=== PATIENT | male | born 1955 | race Caucasian/White ===

== ENCOUNTER 2017-03-18 10:28 | Emergency (ER) | payer MEDICARE ==
[~2017-03-18] VITALS: Wt 54.0 kg
[~2017-03-18 10:28] MED LIST: ALBUTEROL0.09 MG/A2 IH; ASMANEX220 MCG INH; BIAXIN500 MG PO; DUONEB 3 MG/3 ML3 M1 INH; Duoneb 3ML 3 MG/3 ML INH; HYCODAN/HYDROMET5 ML PO; IBU800 MG PO; KEFLEX500 MG PO; MEDROL DOSEPAK4 MG PO; MIRTAZAPINE15 M2 PO; MOTRIN400 MG PO; NEURONTIN800 MG PO; PAXIL20 MG PO; PAXIL40 M1 PO; PREDNICOT20 MG PO; PROAIR HFA8.5 GM INH; REMERON15 M1 PO; REMERON15 M2 PO; SPIRIVA18 MCG IH; SPIRIVA18 MCG INH; VICO10300 PO; VICODIN 5/500 505 MG PO; ZITHROMAX Z PA250 MG PO
[2017-03-18] MEDS ORDERED: TOBREX OPHTH S2.5 ML OPH (11:04)
== END 2017-03-18 11:08 | disposition home or self-care (01) ==
LOC: ED 10:28
DX: S05.02XA Injury of conjunctiva and corneal abrasion without foreign body, left eye, initial encounter (principal); F17.200 Nicotine dependence, unspecified, uncomplicated; Z79.899 Other long term (current) drug therapy; X58.XXXA Exposure to other specified factors, initial encounter; Y93.89 Activity, other specified; Y92.69 Other specified industrial and construction area as the place of occurrence of the external cause; Y99.0 Civilian activity done for income or pay

== ENCOUNTER 2017-03-27 11:59 | Inpatient (IN) | payer MEDICARE ==
[~2017-03-27] VITALS: Ht 177.8 cm; Wt 56.0 kg
--- NOTE | ~2017-03-27 | CON ---
[place], [place] REPORT OF CONSULTATION NAME: PAULINO CHA [facility] #: [id number] UNIT #: [id number] ROOM: 521 DOCTOR: REX WYLIE MD,CATY BIRTHDATE: [birth year] DOS: 03/28/2017 PULMONARY CONSULTATION REASON FOR CONSULTATION: Assess the patient for acute pneumothorax after recent fall. HISTORY OF PRESENT ILLNESS: A 61-year-old male who has been admitted to the hospital under the care of the hospitalist service on 03/27/2017. The patient presented to the Emergency Room after the patient fell down at home hitting the left side of the chest. The injury occurred on the of this month. The patient has felt the pain in left side of his chest, but did not notice any other unusual symptoms. Later on the patient was noted with gradual worsening of the pain, which occurs with movement and deep inspiration. He was also started noticing symptoms of shortness of breath. The patient presented to the Emergency Room, where chest x-ray and CT scan of the chest was completed. Both of them shows evidence of left-sided pneumothorax. The patient has been admitted to the hospital. Pneumothorax has been noted small, 10% or less on the CT scan of the chest and the chest x-ray. This morning the chest pain seemed to be decreased. Denies symptoms of hemoptysis. Denies symptoms of wheezing. REVIEW OF SYSTEMS: CONSTITUTIONAL SYMPTOMS: Fatigue and tiredness noted without symptoms of fever or chills. EYES: Denies any burning, redness, or tenderness. EARS, NOSE, THROAT: Denies sore throat, hoarseness, otalgia, postnasal drainage. CARDIOVASCULAR: Denies anginal pain, edema or pain of the lower extremities. GASTROINTESTINAL: Denies dysphagia, nausea, vomiting, diarrhea, abdominal pain, hematemesis, melena, or hematochezia. SKIN: Denies any lesions or rashes. GENITOURINARY: Denies dysuria, suprapubic pain, hematuria. MUSCULOSKELETAL: Denies acute joint pain. CENTRAL NERVOUS SYSTEM: No dizziness, headache, diplopia, syncopal episodes. Remaining systems were reviewed and they were noted all negative. PAST MEDICAL HISTORY: Reported as: 1. COPD/centrilobular emphysema. 2. Gastroesophageal reflux. 3. History of hepatitis C. 4. Hepatic steatosis. 5. History of hiatal hernia. 6. History of clavicle fracture. SOCIAL HISTORY: The patient stated that he is , has 3 children. Smoking started as a teenager, active smoking of cigarettes noted, 1.5 packs of cigarettes per day. There was no history of alcohol use or any illicit drug. History of marijuana use was noted. [place], [place] REPORT OF CONSULTATION NAME: PAULINO CHA UNIT #: [id number] ROOM: 521 DOCTOR: CATY BRITTON MD BIRTHDATE: [birth year] FAMILY HISTORY: Father at age of 60+ years old, complication of congestive heart failure. Mother at the age of 60+ years, complication of congestive heart failure, ____ noted history of diabetes mellitus. HOME MEDICATIONS: Noted use of ProAir HFA inhaler, Neurontin, ibuprofen, DuoNeb, Remeron, Paxil, and Spiriva. DRUG ALLERGIES: No known drug allergies. PHYSICAL EXAMINATION: GENERAL: This is a 61-year-old male who has been noted currently awake and alert at this time of the assessment without any distress. The patient's height was noted 5 feet 10 inches, weight of 123 pounds, BMI 17.7. VITAL SIGNS: For the patient recorded as normal temperature, respiratory rate of 20-18, heart rate of 63-58, blood pressure 142/57-136/66. Pulse oxygen saturation noted as 99% on 5 L nasal cannula. HEENT: Examination shows head was atraumatic. Eyes nonicterus. NECK: Supple. CARDIOVASCULAR: S1, S2 audible. LUNGS: The patient was noted without any crackles, rhonchi, or wheezing. [id number]-[id number] decreased breath sounds noted on the left chest. ABDOMEN: Flat, soft, nontender. CENTRAL NERVOUS SYSTEM: The patient was noted cranial nerves 2-12 intact. No focal deficits. MUSCULOSKELETAL: No deformities. SKIN: No lesions or rashes. LABORATORY DATA: CBC 03/27/2017, WBC count normal, hemoglobin 13.7, hematocrit 42.3, platelet count 240,000. CMP 03/27/2017 was noted normal BUN and creatinine. Remaining LFTs were normal yesterday. CBC of noted normal CBC. PT/PTT was noted as normal. CMP on 03/28/2017 was noted as normal CMP. Chest x-ray ____ which was completed on 03/27/2017, shows small left apical pneumothorax about 10% or so. Nondisplaced 10th rib fracture was noted laterally as well. CT scan of the chest, which was done without contrast for further assessment shows 10% or less pneumothorax noted in the apex as well as in the left lower lobe with the several apical pleural blebs noted. IMPRESSION: 1. The patient has been currently noted with traumatic pneumothorax, which seemed to be stable at this time with bilateral apical blebs. 2. History of chronic obstructive pulmonary disease, which has been known previously without any acute exacerbation. 3. Nondisplaced 10th rib fracture after trauma and fall from the of this month. 4. History of chronic heavy nicotine dependence. PLAN OF TREATMENT: The chest x-ray which has been done this morning was assessed, does not show any progression of the pneumothorax. The x-ray need to be closely monitored at this time for pneumothorax progress. The patient will [place], [place] REPORT OF CONSULTATION NAME: PAULINO CHA UNIT #: [id number] ROOM: 521 DOCTOR: REX WYLIE MD,CATY BIRTHDATE: [birth year] require a chest tube insertion. Slow air leak should be considered and cannot be completely excluded because of the current several apical subpleural blebs. However, conservative treatment to be continued unless pneumothorax worsens. There is no surgical intervention needed at this time, and the patient does not require an immediate chest tube insertion. All other supportive therapy, plan of management. Usual care as previously in progress. Nicotine replacement patches to overcome the nicotine withdrawal as well. Bronchodilators should be continued. Adequate pain control to prevent any area of atelectasis of lung because of the ineffective secretion clearance resulting in pneumonia. Another chest x-ray to be repeated in the morning. Continue oxygen supplementation. Thank you for allowing me to participate in the care of this patient. CATY GOODMAN MD CM:CONSTR:REPORT OF CONSULTATION 1204 03/28/17 1754 interface
--- NOTE | ~2017-03-27 | WRIGHTHP ---
[place], [place] PATIENT HISTORY AND PHYSICAL EXAM NAME: PAULINO CHA [facility] #: [id number] UNIT #: [id number] ROOM: 521 DOCTOR: LEX LOCKWOOD DO BIRTHDATE: [birth year] DOS: 03/27/2017 PRIMARY CARE PHYSICIAN: Dr. Varghese. The patient was seen and evaluated with the resident on 03/27/2017. Please see the resident's note for further details. ASSESSMENT: 1. Acute traumatic pneumothorax on the left side. 2. Chest wall contusion secondary to fall from yesterday. 3. Chronic obstructive pulmonary disease. 4. Tobacco abuse. 5. Anxiety. 6. Depression. 7. History of hepatitis C. 8. Dyslipidemia. 9. Gastroesophageal reflux disease. PLAN: We will continue to keep the patient on supplemental oxygen via nasal cannula. Continue pain control with scheduled doses of Percocet. Dr. Tariq will be consulted for the pneumothorax. Another chest x-ray will be done in the morning. LEX LOCKWOOD DO CM:HISPHYS:PATIENT HISTORY AND PHYSICAL EXAMINATION 24 11 LEX LOCKWOOD DO 03/27/172109 interface
[~2017-03-27 11:59] MED LIST changes: +TOBREX OPHTH S2.5 ML OPH
[2017-03-27 12:06] VITALS: BP 125/58
[2017-03-27 13:57] LABS: BASO # 0.1 10*3/uL (0.0-0.1); BASO % 0.6 % (0.0-1.0); EOS # 0.1 10*3/uL (0.0-0.4); EOS % 0.9 % (1.0-4.0); HEMATOCRIT 42.3 % (42.0-52.0); HEMOGLOBIN 13.7 g/dl (14.0-18.0); LYMPH # 1.9 10*3/uL (1.3-4.4); LYMPH % 24.1 % (27.0-41.0); MEAN CELL VOLUME 92.2 fl (80.0-94.0); MEAN CORPUSCULAR HGB 29.8 pg (27.0-31.0); MEAN CORPUSCULAR HGB CONC 32.4 g/dl (33.0-37.0); MEAN PLATELET VOLUME 9.1 fl (9.6-12.3); MONO # 0.7 10*3/uL (0.1-1.0); MONO % 8.7 % (3.0-9.0); NEUT # 5.1 10*3/uL (2.3-7.9); NEUT % 65.4 % (47.0-73.0); PLATELET COUNT AUTOMATED 240 10*3/uL (130-400); RED BLOOD COUNT 4.59 10*6/uL (4.50-5.90); RED CELL DISTRI WIDTH 13.9 % (0-14.5); WHITE BLOOD COUNT 7.8 10*3/uL (4.8-10.8)
[2017-03-27 14:11] LABS: ALBUMIN 3.5 gm/dl (3.1-4.5); BILIRUBIN, TOTAL 0.6 mg/dl (0.2-1.0); BUN 11 mg/dl (7-24); CARBON DIOXIDE 28 mmol/L (21-32); CHLORIDE 103 mmol/L (98-107); EST GLOM FILT AFRICAN AMERICAN > 60 ml/min; GLUCOSE 88 mg/dL (65-99); POTASSIUM 4.5 mmol/L (3.5-5.1); SGOT/AST 19 IU/L (3-35); SGPT/ALT 27 U/L (12-78); SODIUM 139 mmol/L (136-145); TOTAL PROTEIN 7.2 gm/dL (6.4-8.2)
[2017-03-27 14:12] LABS: ALKALINE PHOSPHATASE 61 U/L (45-117)
[2017-03-27 16:00] VITALS: BP 144/91
[2017-03-27 20:00] VITALS: BP 136/66
[2017-03-28 06:05] LABS: BASO # 0.1 10*3/uL (0.0-0.1); BASO % 0.6 % (0.0-1.0); EOS # 0.2 10*3/uL (0.0-0.4); EOS % 1.9 % (1.0-4.0); HEMATOCRIT 43.9 % (42.0-52.0); HEMOGLOBIN 14.5 g/dl (14.0-18.0); LYMPH # 2.3 10*3/uL (1.3-4.4); LYMPH % 29.8 % (27.0-41.0); MEAN CELL VOLUME 92.8 fl (80.0-94.0); MEAN CORPUSCULAR HGB 30.7 pg (27.0-31.0); MEAN PLATELET VOLUME 9.3 fl (9.6-12.3); MONO # 0.8 10*3/uL (0.1-1.0); MONO % 10.2 % (3.0-9.0); NEUT # 4.4 10*3/uL (2.3-7.9); NEUT % 57.4 % (47.0-73.0); PLATELET COUNT AUTOMATED 224 10*3/uL (130-400); RED BLOOD COUNT 4.73 10*6/uL (4.50-5.90); RED CELL DISTRI WIDTH 13.9 % (0-14.5); WHITE BLOOD COUNT 7.7 10*3/uL (4.8-10.8)
[2017-03-28 06:29] LABS: ALBUMIN 3.1 gm/dl (3.1-4.5); BUN 18 mg/dl (7-24); CARBON DIOXIDE 29 mmol/L (21-32); CHLORIDE 103 mmol/L (98-107); GLUCOSE 87 mg/dL (65-99); MAGNESIUM 2.1 mg/dL (1.5-2.1); POTASSIUM 4.3 mmol/L (3.5-5.1); SODIUM 138 mmol/L (136-145)
[2017-03-28 06:34] LABS: ALKALINE PHOSPHATASE 64 U/L (45-117); BILIRUBIN, TOTAL 0.5 mg/dl (0.2-1.0); EST GLOM FILT AFRICAN AMERICAN > 60 ml/min; SGOT/AST 15 IU/L (3-35); SGPT/ALT 23 U/L (12-78); TOTAL PROTEIN 6.8 gm/dL (6.4-8.2)
[2017-03-28 06:48] LABS: INTERNATIONAL NORM RATIO 0.9 (2.0-3.5); PROTHROMBIN TIME 9.6 SECONDS (9.0-12.4)
[2017-03-28 08:00] VITALS: BP 142/57
[2017-03-28] MEDS ORDERED: PRILOSEC20 M1 PO (09:35)
[2017-03-28] MEDS ORDERED: FLOMAX0.4 MG PO (09:36)
[2017-03-28] MEDS ORDERED: ARNUITY EL100 MCG/Ac IH (09:37)
[2017-03-28 12:00] VITALS: BP 138/57
[2017-03-28 16:00] VITALS: BP 169/66
[2017-03-28 20:00] VITALS: BP 140/59
[2017-03-29] VITALS: BP 132/73
[2017-03-29 08:00] VITALS: BP 135/48
[2017-03-29] MEDS ORDERED: APAP/OXYCODONE1 TA2 PO (10:25)
[2017-03-29] MEDS ORDERED: NICOTINE T21 MG/24 H TD (11:00)
[2017-03-29] MEDS ORDERED: MEDROL DOSEPAK4 MG PO (12:08)
[2017-03-29] MEDS ORDERED: PERCOCET 325 MG1 TA3 PO (14:21)
== END 2017-03-29 13:02 | disposition home or self-care (01) | DRG 200 ==
LOC: ED 11:59 → EDHOLD 13:50 → 5E 13:50
PROVIDERS: Emergency Medicine; Nurse Practitioner Family; Student in an Organized Health Care Education/Training Program
DX: S27.0XXA Traumatic pneumothorax, initial encounter (principal); S22.32XA Fracture of one rib, left side, initial encounter for closed fracture; J43.9 Emphysema, unspecified; S20.219A Contusion of unspecified front wall of thorax, initial encounter; E78.5 Hyperlipidemia, unspecified; K21.9 Gastro-esophageal reflux disease without esophagitis; F41.8 Other specified anxiety disorders; F17.210 Nicotine dependence, cigarettes, uncomplicated; Z86.19 Personal history of other infectious and parasitic diseases; Z82.49 Family history of ischemic heart disease and other diseases of the circulatory system; Z79.51 Long term (current) use of inhaled steroids; Z79.1 Long term (current) use of non-steroidal anti-inflammatories (NSAID); Z79.899 Other long term (current) drug therapy; W01.0XXA Fall on same level from slipping, tripping and stumbling without subsequent striking against object, initial encounter; Y93.89 Activity, other specified; Y92.89 Other specified places as the place of occurrence of the external cause; Y99.8 Other external cause status

== ENCOUNTER → 2017-04-19 | Outpatient (CLI) | payer MEDICARE ==
[~2017-04-19] MED LIST changes: +APAP/OXYCODONE1 TA2 PO; +ARNUITY EL100 MCG/Ac IH; +FLOMAX0.4 MG PO; +NICOTINE T21 MG/24 H TD; +PERCOCET 325 MG1 TA3 PO; +PRILOSEC20 M1 PO
[2017-04-19 10:53] LABS: FREE THYROXIN INDEX/T7 2.2 (1.4-4.7); THYROXINE (T4) TOTAL 6.2 ug/dl (4.5-12.1)
[2017-04-19 10:59] LABS: THYROID STIM HORMONE (HS) 0.284 uIU/ml (0.358-4.75)
== END ==
LOC: LAB 10:02
PROVIDERS: Internal Medicine
DX: R63.4 Abnormal weight loss (principal)

== ENCOUNTER → 2017-04-22 | Outpatient (CLI) | payer MEDICARE ==
[2017-04-22 12:27] LABS: PREALBUMIN 29 mg/dl (20-40)
[2017-04-23 18:05] LABS: HEPATITIS C QNT 1270000 IU/mL (.)
[2017-04-25 17:12] LABS: HCV REFLEX CHARGE CHG; HEPATITIS C GENOTYPE 1a (.)
== END | disposition home or self-care (01) ==
LOC: LAB 11:19
PROVIDERS: Nurse Practitioner Family
DX: J44.9 Chronic obstructive pulmonary disease, unspecified (principal); R63.4 Abnormal weight loss; R10.9 Unspecified abdominal pain; B18.2 Chronic viral hepatitis C

== ENCOUNTER → 2017-04-30 | Outpatient (CLI) | payer MEDICARE | END | disposition home or self-care (01) | LOC: US 04-21 10:00 | DX: N13.30 Unspecified hydronephrosis (principal); R10.11 Right upper quadrant pain; R63.4 Abnormal weight loss; K76.0 Fatty (change of) liver, not elsewhere classified ==

== ENCOUNTER → 2017-05-26 | Outpatient (CLI) | payer MEDICARE | END | disposition home or self-care (01) | LOC: NM 05-20 08:30 | DX: K82.0 Obstruction of gallbladder (principal) ==

== ENCOUNTER → 2017-06-10 | Outpatient (CLI) | payer MEDICARE ==
[~2017-06-10] MED LIST changes: +Ventolin 02.5 MG/3 M NEB
[2017-06-10 12:29] LABS: BASO % 0.4 % (0.0-1.0); EOS # 0.1 10*3/uL (0.0-0.4); EOS % 0.8 % (1.0-4.0); HEMATOCRIT 47.3 % (42.0-52.0); HEMOGLOBIN 15.3 g/dl (14.0-18.0); LYMPH # 2.2 10*3/uL (1.3-4.4); LYMPH % 28.8 % (27.0-41.0); MEAN CELL VOLUME 91.8 fl (80.0-94.0); MEAN CORPUSCULAR HGB 29.7 pg (27.0-31.0); MEAN CORPUSCULAR HGB CONC 32.3 g/dl (33.0-37.0); MEAN PLATELET VOLUME 9.6 fl (9.6-12.3); MONO # 0.5 10*3/uL (0.1-1.0); MONO % 6.9 % (3.0-9.0); NEUT # 4.8 10*3/uL (2.3-7.9); NEUT % 62.8 % (47.0-73.0); PLATELET COUNT AUTOMATED 220 10*3/uL (130-400); RED BLOOD COUNT 5.15 10*6/uL (4.50-5.90); RED CELL DISTRI WIDTH 14.4 % (0-14.5); WHITE BLOOD COUNT 7.6 10*3/uL (4.8-10.8)
[2017-06-10 12:30] LABS: BILIRUBIN NEGATIVE (NEGATIVE); BLOOD NEGATIVE (NEGATIVE); CLARITY CLEAR (CLEAR); COLOR YELLOW (YELLOW); GLUCOSE NEGATIVE (NEGATIVE); KETONE NEGATIVE (NEGATIVE); LEUKO ESTERASE NEGATIVE (NEGATIVE); NITRITE NEGATIVE (NEGATIVE); PH 5.5 (5.0-9.0); SPECIFIC GRAVITY <= 1.005 (1.005-1.030); UROBILINOGEN 0.2 E.U./dl (0.2-1.0)
[2017-06-10 12:35] LABS: RBC 0-2 rbc/hpf (0-2); WBC 0-2 wbc/hpf (0-5)
[2017-06-10 12:42] LABS: ALBUMIN 3.6 gm/dl (3.1-4.5); ALKALINE PHOSPHATASE 91 U/L (45-117); BILIRUBIN, DIRECT < 0.1 mg/dL (0.0-0.2); BUN 12 mg/dl (7-24); CHLORIDE 105 mmol/L (98-107); CREATININE 0.91 mg/dL (0.70-1.30); POTASSIUM 4.4 mmol/L (3.5-5.1); SGOT/AST 17 IU/L (3-35); SGPT/ALT 18 U/L (12-78); SODIUM 136 mmol/L (136-145); TOTAL PROTEIN 7.7 gm/dL (6.4-8.2)
[2017-06-10 12:53] LABS: INTERNATIONAL NORM RATIO 0.9 (2.0-3.5)
== END | disposition home or self-care (01) ==
LOC: LAB 09:55
PROVIDERS: Surgery
DX: Z01.818 Encounter for other preprocedural examination (principal); J43.9 Emphysema, unspecified; K82.8 Other specified diseases of gallbladder; F17.200 Nicotine dependence, unspecified, uncomplicated

== ENCOUNTER → 2017-06-16 | Day surgery (SDC) | payer MEDICARE ==
[~2017-06-16] VITALS: Ht 177.8 cm; Wt 56.2 kg
[2017-06-16] VITALS (8 sets, daily range): BP systolic 147–180; BP diastolic 70–88
[~2017-06-16] MED LIST changes: +NORCO 5-325 TA1 EACH PO; +PERCOCET 5-3251 EACH PO
--- NOTE | ~2017-06-16 | O ---
[place], [place] OPERATIVE NOTE NAME: PAULINO CHA [facility] #: [id number] UNIT #: [id number] ROOM: DOCTOR: CATALINO NELSON MD BIRTHDATE: [birth year] DOS: 06/16/2017 PREOPERATIVE DIAGNOSIS: Biliary dyskinesia. POSTOPERATIVE DIAGNOSIS: Biliary dyskinesia. PROCEDURE: Laparoscopic cholecystectomy. SURGEON: Catalino Nelson MD DIRECTOR OF ARCHITECTURE: MS3. ANESTHESIA: General with endotracheal intubation. INDICATIONS: This is a 62-year-old male with a history of biliary dyskinesia, who is here for the above-mentioned procedure. The procedure and its complications explained to the patient in detail preoperatively. Complications that were discussed included but were not limited to bleeding, infection, hematoma/seroma/abscess formation, biloma formation, inadvertent injury of the common bile duct, incisional hernia formation and prolonged pain. He agreed to proceed. DESCRIPTION OF PROCEDURE: After identifying the patient, the patient was brought to the operating suite and laid in the supine position. After induction of general anesthesia, timeout procedure was called and parts were then painted and draped in the usual sterile fashion. An incision was made in a transverse fashion below the umbilicus. The skin and the subcutaneous tissue were incised. The fascia was incised vertically and 2 stay sutures with 0 Vicryl were taken on either side. After the peritoneum was opened, a 12 mm Olinda port was introduced and a pneumoperitoneum was created. Under direct vision, an epigastric incision of 10 mm and two 5 mm incisions were made in the right upper quadrant and appropriate size ports were introduced. The gallbladder was retracted superiorly and laterally. The cystic duct and the cystic artery were dissected meticulously until the critical view of safety was obtained each of these structures were then clipped 3 times and cut between the first and the second clip. The gallbladder was then removed from the bed of the gallbladder with the help of electrocautery that was placed in an EndoCatch bag and removed from the peritoneal cavity and sent for histopathological diagnosis. Thereafter, hemostasis was confirmed in the liver bed. The right upper quadrant and epigastric ports were removed and then there was no bleeding seen. The umbilical port was also removed and the 2 stay sutures were tied together and an additional 0 Vicryl stitch was used to close the fascial defect. The subcutaneous tissue was injected with 1% plain lidocaine and the skin edges were then approximated with the help of 4-0 Vicryl in a subcuticular running fashion. Dressing was placed. The patient tolerated the procedure well. There were no complications. Dr. Catalino Nelson, the attending surgeon, was present throughout the operating case. [place], [place] OPERATIVE NOTE NAME: PAULINO CHA UNIT #: [id number] ROOM: DOCTOR: CATALINO NELSON MD BIRTHDATE: [birth year] Catalino Nelson MD CM:OPRECORD:OPERATIVE NOTE [id number] CATALINO NELSON MD 06/16/17 0937 interface
== END | disposition home or self-care (01) ==
LOC: SDC 06-10 10:15
DX: K82.8 Other specified diseases of gallbladder (principal); F41.9 Anxiety disorder, unspecified; F32.9 Major depressive disorder, single episode, unspecified; K21.9 Gastro-esophageal reflux disease without esophagitis; J43.9 Emphysema, unspecified; B19.20 Unspecified viral hepatitis C without hepatic coma; Z83.6 Family history of other diseases of the respiratory system; Z98.890 Other specified postprocedural states; F17.210 Nicotine dependence, cigarettes, uncomplicated

== ENCOUNTER → 2017-06-22 | Outpatient (CLI) | payer MEDICARE ==
[2017-06-22 15:06] LABS: BASO % 0.3 % (0.0-1.0); EOS # 0.1 10*3/uL (0.0-0.4); EOS % 1.3 % (1.0-4.0); HEMOGLOBIN 14.6 g/dl (14.0-18.0); LYMPH # 2.2 10*3/uL (1.3-4.4); LYMPH % 24.7 % (27.0-41.0); MEAN CELL VOLUME 90.2 fl (80.0-94.0); MEAN CORPUSCULAR HGB 29.9 pg (27.0-31.0); MEAN CORPUSCULAR HGB CONC 33.2 g/dl (33.0-37.0); MEAN PLATELET VOLUME 9.4 fl (9.6-12.3); MONO # 0.6 10*3/uL (0.1-1.0); MONO % 6.5 % (3.0-9.0); NEUT # 6.1 10*3/uL (2.3-7.9); PLATELET COUNT AUTOMATED 218 10*3/uL (130-400); RED BLOOD COUNT 4.88 10*6/uL (4.50-5.90); RED CELL DISTRI WIDTH 13.9 % (0-14.5); WHITE BLOOD COUNT 9.1 10*3/uL (4.8-10.8)
[2017-06-22 15:22] LABS: ALBUMIN 3.4 gm/dl (3.1-4.5); ALKALINE PHOSPHATASE 80 U/L (45-117); BILIRUBIN, DIRECT < 0.1 mg/dL (0.0-0.2); BUN 16 mg/dl (7-24); CHLORIDE 102 mmol/L (98-107); CREATININE 1.02 mg/dL (0.70-1.30); POTASSIUM 4.1 mmol/L (3.5-5.1); SGOT/AST 11 IU/L (3-35); SGPT/ALT 21 U/L (12-78); SODIUM 136 mmol/L (136-145); TOTAL PROTEIN 7.3 gm/dL (6.4-8.2)
[2017-06-23 17:07] LABS: HEPATITIS C QUANTITATION HCV Not Detected IU/mL (.)
== END | disposition home or self-care (01) ==
LOC: LAB 14:26
PROVIDERS: Nurse Practitioner Family
DX: B18.2 Chronic viral hepatitis C (principal)

== ENCOUNTER 2017-06-27 11:50 | Inpatient (IN) | payer MEDICARE ==
[~2017-06-27] VITALS: Ht 177.8 cm; Wt 55.1 kg
[2017-06-27 12:00] VITALS: BP 162/73
[2017-06-27 12:40] LABS: BASO # 0.1 10*3/uL (0.0-0.1); BASO % 0.5 % (0.0-1.0); EOS # 0.1 10*3/uL (0.0-0.4); EOS % 1.3 % (1.0-4.0); HEMATOCRIT 44.5 % (42.0-52.0); HEMOGLOBIN 14.6 g/dl (14.0-18.0); LYMPH # 2.2 10*3/uL (1.3-4.4); MEAN CELL VOLUME 89.4 fl (80.0-94.0); MEAN CORPUSCULAR HGB 29.3 pg (27.0-31.0); MEAN CORPUSCULAR HGB CONC 32.8 g/dl (33.0-37.0); MONO # 0.6 10*3/uL (0.1-1.0); MONO % 6.9 % (3.0-9.0); NEUT # 6.2 10*3/uL (2.3-7.9); NEUT % 67.1 % (47.0-73.0); PLATELET COUNT AUTOMATED 240 10*3/uL (130-400); RED BLOOD COUNT 4.98 10*6/uL (4.50-5.90); RED CELL DISTRI WIDTH 13.9 % (0-14.5); WHITE BLOOD COUNT 9.3 10*3/uL (4.8-10.8)
[2017-06-27 12:48] LABS: ACT PARTIAL THROMBO TIME 24.5 SECONDS (20.8-31.5); INTERNATIONAL NORM RATIO 0.9 (2.0-3.5)
[2017-06-27 12:57] LABS: ALBUMIN 3.6 gm/dl (3.1-4.5); ALKALINE PHOSPHATASE 83 U/L (45-117); BUN 14 mg/dl (7-24); CHLORIDE 100 mmol/L (98-107); CREATININE 0.84 mg/dL (0.70-1.30); POTASSIUM 4.5 mmol/L (3.5-5.1); SGOT/AST 14 IU/L (3-35); SGPT/ALT 18 U/L (12-78); SODIUM 134 mmol/L (136-145); TOTAL PROTEIN 7.3 gm/dL (6.4-8.2)
[2017-06-27 13:01] LABS: TROPONIN I < 0.015 ng/ml (<0.045)
[2017-06-27 13:16] VITALS: BP 166/80
[2017-06-27 14:51] VITALS: BP 138/81
--- NOTE | 2017-06-27 15:20 | NUR ---
A 62, admitted to 5E, under the services of SARITA Bermudez DO with a diagnosis of COPD EXACERBATION, RIGHT SIDED CHEST PAIN. Chief complaint is RUQ PAIN/CHEST PAIN. Patient arrived via stretcher from ER. Monitor applied. Initial assessment completed. Vital signs taken and recorded. SARITA BERMUDEZ DO notified of admission to the unit. Orders received. See assessment for past medical history, medications and allergies. Patient and/or family oriented to unit. [address] visitation policy reviewed. Clothing/patient valuable form completed. AMANUEL AMBROSE
[2017-06-27 15:24] VITALS: BP 170/80
[2017-06-27] MEDS ORDERED: ARNUITY ELLIP100 MCG INH (15:50)
[2017-06-27] MEDS ORDERED: PRILOSEC20 M1 PO (15:50)
--- NOTE | 2017-06-27 15:52 | NUR ---
MEDS VERIFIED WITH [facility] PHARMACIST. Michele MORENO NP NOTIFIED.
--- NOTE | 2017-06-27 17:02 | NUR ---
PT REEQUESTED AND WAS MEDICATED WITH [facility] FOR C/O RIGHT SIDED CHEST PAIN
[2017-06-27 18:33] LABS: BILIRUBIN NEGATIVE (NEGATIVE); BLOOD NEGATIVE (NEGATIVE); CLARITY CLEAR (CLEAR); COLOR YELLOW (YELLOW); GLUCOSE TRACE (NEGATIVE); KETONE NEGATIVE (NEGATIVE); LEUKO ESTERASE NEGATIVE (NEGATIVE); NITRITE NEGATIVE (NEGATIVE); PH 5.5 (5.0-9.0); SPECIFIC GRAVITY <= 1.005 (1.005-1.030); UROBILINOGEN 0.2 E.U./dl (0.2-1.0)
[2017-06-27 18:42] LABS: URINE AMPHETAMINES < 1000 (1000ng/ml); URINE BARBITURATES < 200 (200ng/ml); URINE BENZODIAZEPINES < 200 (200ng/ml); URINE CANNABINOIDS (THC) > 50 (50ng/ml); URINE COCAINE < 300 (300ng/ml); URINE METHADONE < 300 (300ng/ml); URINE OPIATES > 300 (300ng/ml)
[2017-06-27 18:44] LABS: URINE PHENCYCLIDINE < 25 (25ng/ml)
[2017-06-27 18:49] LABS: RBC 0-2 rbc/hpf (0-2)
--- NOTE | 2017-06-27 19:55 | NUR ---
PATIENT IS RESTING IN BED WITH FAMILY MEMBERS AT BEDSIDE. C/O RIGHT SIDE PAIN WHICH HE RATES A 4 BUT DOES NOT WANT ANYTHING FOR IT AT THIS TIME. RESPIRATIONS ARE EASY/REGULAR. CALL LIGHT IS IN REACH.
[2017-06-27 20:00] VITALS: BP 131/59
[2017-06-28] VITALS: BP 118/59
[2017-06-28 06:13] LABS: BASO % 0.1 % (0.0-1.0); HEMOGLOBIN 14.9 g/dl (14.0-18.0); LYMPH # 1.3 10*3/uL (1.3-4.4); LYMPH % 9.5 % (27.0-41.0); MEAN CELL VOLUME 88.8 fl (80.0-94.0); MEAN CORPUSCULAR HGB 29.4 pg (27.0-31.0); MEAN CORPUSCULAR HGB CONC 33.1 g/dl (33.0-37.0); MEAN PLATELET VOLUME 9.1 fl (9.6-12.3); MONO # 0.2 10*3/uL (0.1-1.0); MONO % 1.3 % (3.0-9.0); NEUT # 12.1 10*3/uL (2.3-7.9); NEUT % 88.6 % (47.0-73.0); PLATELET COUNT AUTOMATED 265 10*3/uL (130-400); RED BLOOD COUNT 5.07 10*6/uL (4.50-5.90); RED CELL DISTRI WIDTH 13.8 % (0-14.5); WHITE BLOOD COUNT 13.6 10*3/uL (4.8-10.8)
[2017-06-28 06:29] LABS: ALBUMIN 3.4 gm/dl (3.1-4.5); ALKALINE PHOSPHATASE 82 U/L (45-117); BUN 21 mg/dl (7-24); CHLORIDE 99 mmol/L (98-107); PHOSPHOROUS 4.8 mg/dL (2.5-4.9); POTASSIUM 5.3 mmol/L (3.5-5.1); SGOT/AST 13 IU/L (3-35); SGPT/ALT 20 U/L (12-78); SODIUM 134 mmol/L (136-145); TOTAL PROTEIN 7.7 gm/dL (6.4-8.2)
[2017-06-28 08:00] VITALS: BP 127/59
[2017-06-28 08:07] LABS: VITAMIN D, 25-HYDROXY 32.9 ng/mL (30-100)
--- NOTE | 2017-06-28 08:30 | NUR ---
Patient resting quietly with no c/o discomfort. Respirations easy and regular. Vital signs stable. No overt distress. AMANUEL AMBROSE R
[2017-06-28 12:00] VITALS: BP 146/66
--- NOTE | 2017-06-28 14:00 | NUR ---
PT STATES HE WANTS TO LEAVE AMA. HEP LOCK AND MONITOR REMOVED.
--- NOTE | 2017-06-28 14:36 | NUR ---
PT LEFT AMA. LORNA MORENO, SARA AND NURSING GUARD IMMIGRATION NOTIFIED.
== END 2017-06-28 14:36 | disposition left against medical advice (07) | DRG 191 ==
LOC: ED 11:50 → 5E 14:27 → EDHOLD 14:27 → 5E 14:32
PROVIDERS: Emergency Medicine; Registered Nurse; ADMIT Internal Medicine
DX: J44.1 Chronic obstructive pulmonary disease with (acute) exacerbation (principal); E87.1 Hypo-osmolality and hyponatremia; M94.0 Chondrocostal junction syndrome [Tietze]; E87.5 Hyperkalemia; D72.829 Elevated white blood cell count, unspecified; F41.8 Other specified anxiety disorders; F12.90 Cannabis use, unspecified, uncomplicated; K21.9 Gastro-esophageal reflux disease without esophagitis; B18.2 Chronic viral hepatitis C; F17.210 Nicotine dependence, cigarettes, uncomplicated; F32.9 Major depressive disorder, single episode, unspecified; Z53.21 Procedure and treatment not carried out due to patient leaving prior to being seen by health care provider; J45.909 Unspecified asthma, uncomplicated; R73.9 Hyperglycemia, unspecified; Z90.49 Acquired absence of other specified parts of digestive tract; Z79.899 Other long term (current) drug therapy; Z82.49 Family history of ischemic heart disease and other diseases of the circulatory system; Z83.3 Family history of diabetes mellitus; Z83.6 Family history of other diseases of the respiratory system

== ENCOUNTER → 2017-07-13 | Outpatient (CLI) | payer MEDICARE ==
[~2017-07-13] MED LIST changes: +ARNUITY ELLIP100 MCG INH
== END | disposition home or self-care (01) ==
LOC: US 07-04 12:30
DX: I65.23 Occlusion and stenosis of bilateral carotid arteries (principal); R42 Dizziness and giddiness

== ENCOUNTER 2017-08-23 19:06 | Emergency (ER) | payer MEDICARE ==
[~2017-08-23] VITALS: Ht 172.7 cm; Wt 77.1 kg
[2017-08-23 20:02] LABS: BASO % 0.6 % (0.0-1.0); EOS # 0.2 10*3/uL (0.0-0.4); EOS % 2.2 % (1.0-4.0); HEMATOCRIT 38.6 % (42.0-52.0); HEMOGLOBIN 12.7 g/dl (14.0-18.0); LYMPH # 2.2 10*3/uL (1.3-4.4); LYMPH % 30.6 % (27.0-41.0); MEAN CELL VOLUME 90.6 fl (80.0-94.0); MEAN CORPUSCULAR HGB 29.8 pg (27.0-31.0); MEAN CORPUSCULAR HGB CONC 32.9 g/dl (33.0-37.0); MEAN PLATELET VOLUME 9.1 fl (9.6-12.3); MONO # 0.6 10*3/uL (0.1-1.0); MONO % 8.1 % (3.0-9.0); NEUT # 4.2 10*3/uL (2.3-7.9); NEUT % 58.2 % (47.0-73.0); PLATELET COUNT AUTOMATED 200 10*3/uL (130-400); RED BLOOD COUNT 4.26 10*6/uL (4.50-5.90); RED CELL DISTRI WIDTH 14.8 % (0-14.5); WHITE BLOOD COUNT 7.3 10*3/uL (4.8-10.8)
[2017-08-23 20:18] LABS: ALBUMIN 3.2 gm/dl (3.1-4.5); ALKALINE PHOSPHATASE 99 U/L (45-117); BUN 8 mg/dl (7-24); CHLORIDE 103 mmol/L (98-107); CREATININE 0.88 mg/dL (0.70-1.30); POTASSIUM 4.2 mmol/L (3.5-5.1); SGOT/AST 11 IU/L (3-35); SGPT/ALT 16 U/L (12-78); SODIUM 140 mmol/L (136-145); TOTAL PROTEIN 6.9 gm/dL (6.4-8.2)
[2017-08-23] MEDS ORDERED: CYCLOBENZAPRINE5 M3 PO (21:53)
== END 2017-08-23 21:59 | disposition home or self-care (01) ==
LOC: ED 19:06
PROVIDERS: Physician Assistant
DX: R51 Headache (principal); F17.200 Nicotine dependence, unspecified, uncomplicated; Z79.899 Other long term (current) drug therapy

== ENCOUNTER 2017-10-27 19:38 | Inpatient (IN) | payer MEDICARE ==
[~2017-10-27] VITALS: Ht 177.8 cm; Wt 58.2 kg
--- NOTE | ~2017-10-27 | EKG ---
[place], [place] ELECTROCARDIOGRAM REPORT NAME: PAULINO CHA UNIT #: [id number] ROOM: 528 DOCTOR: REX WYLIE MD,CATY BIRTHDATE: [birth year] DOS: 10/27/2017 TIME: Done at 9:17 p.m. FINDINGS: Sinus bradycardia noted. Heart rate of 56 beats per minute. Left atrial enlargement and LVH by voltage criteria. CATY GOODMAN MD CM:EKGRPT:ELECTROCARDIOGRAM REPORT 1626 1728 CATY WYLIE MD
--- NOTE | ~2017-10-27 | EKG ---
[place], [place] ELECTROCARDIOGRAM REPORT NAME: PAULINO CHA UNIT #: [id number] ROOM: 528 DOCTOR: REX WYLIE MD,CATY BIRTHDATE: [birth year] DOS: 10/27/2017 TIME: Done at 8:07 p.m. FINDINGS: Sinus bradycardia was noted. Heart rate of 49 beats per minute with left atrial enlargement and LVH by the voltage criteria. CATY GOODMAN MD CM:EKGRPT:ELECTROCARDIOGRAM REPORT 1626 1727 CATY WYLIE MD
[~2017-10-27 19:38] MED LIST changes: +CYCLOBENZAPRINE5 M3 PO
[2017-10-27 19:43] VITALS: BP 116/51
[2017-10-27 20:17] LABS: BASO % 0.3 % (0.0-1.0); EOS % 0.1 % (1.0-4.0); HEMATOCRIT 45.9 % (42.0-52.0); HEMOGLOBIN 14.9 g/dl (14.0-18.0); LYMPH # 1.3 10*3/uL (1.3-4.4); LYMPH % 13.2 % (27.0-41.0); MEAN CELL VOLUME 89.5 fl (80.0-94.0); MEAN CORPUSCULAR HGB CONC 32.5 g/dl (33.0-37.0); MEAN PLATELET VOLUME 9.5 fl (9.6-12.3); MONO # 0.7 10*3/uL (0.1-1.0); MONO % 6.9 % (3.0-9.0); NEUT % 79.1 % (47.0-73.0); PLATELET COUNT AUTOMATED 202 10*3/uL (130-400); RED BLOOD COUNT 5.13 10*6/uL (4.50-5.90); RED CELL DISTRI WIDTH 13.8 % (0-14.5); WHITE BLOOD COUNT 10.1 10*3/uL (4.8-10.8)
[2017-10-27 20:28] LABS: ACT PARTIAL THROMBO TIME 23.9 SECONDS (20.8-31.5)
[2017-10-27 20:33] LABS: ALKALINE PHOSPHATASE 89 U/L (45-117); BUN 12 mg/dl (7-24); CHLORIDE 98 mmol/L (98-107); SGOT/AST 14 IU/L (3-35); SGPT/ALT 15 U/L (12-78); SODIUM 134 mmol/L (136-145); TOTAL PROTEIN 7.6 gm/dL (6.4-8.2)
[2017-10-27 20:42] LABS: THYROID STIM HORMONE (HS) 2.87 uIU/ml (0.358-4.75)
[2017-10-27 21:10] VITALS: BP 116/74
[2017-10-27 21:20] VITALS: BP 143/60
[2017-10-27 21:39] LABS: URINE AMPHETAMINES < 1000 (1000ng/ml); URINE BARBITURATES < 200 (200ng/ml); URINE BENZODIAZEPINES < 200 (200ng/ml); URINE CANNABINOIDS (THC) > 50 (50ng/ml); URINE COCAINE < 300 (300ng/ml); URINE METHADONE < 300 (300ng/ml); URINE OPIATES < 300 (300ng/ml)
[2017-10-27 21:44] LABS: URINE PHENCYCLIDINE < 25 (25ng/ml)
[2017-10-27 22:00] VITALS: BP 161/71
[2017-10-28] VITALS: BP 109/47
[2017-10-28 06:44] LABS: BASO % 0.3 % (0.0-1.0); EOS # 0.1 10*3/uL (0.0-0.4); EOS % 1.3 % (1.0-4.0); HEMATOCRIT 40.7 % (42.0-52.0); HEMOGLOBIN 13.4 g/dl (14.0-18.0); LYMPH # 1.8 10*3/uL (1.3-4.4); LYMPH % 29.9 % (27.0-41.0); MEAN CELL VOLUME 88.9 fl (80.0-94.0); MEAN CORPUSCULAR HGB 29.3 pg (27.0-31.0); MEAN CORPUSCULAR HGB CONC 32.9 g/dl (33.0-37.0); MONO # 0.7 10*3/uL (0.1-1.0); MONO % 11.7 % (3.0-9.0); NEUT # 3.4 10*3/uL (2.3-7.9); NEUT % 56.6 % (47.0-73.0); PLATELET COUNT AUTOMATED 200 10*3/uL (130-400); RED BLOOD COUNT 4.58 10*6/uL (4.50-5.90)
[2017-10-28 07:13] LABS: INTERNATIONAL NORM RATIO 0.9 (2.0-3.5)
[2017-10-28 07:15] LABS: BUN 13 mg/dl (7-24); CHLORIDE 106 mmol/L (98-107); CHOLESTEROL 145 mg/dL (<200); CREATININE 0.86 mg/dL (0.70-1.30); PHOSPHOROUS 3.2 mg/dL (2.5-4.9); POTASSIUM 4.1 mmol/L (3.5-5.1); SGOT/AST 14 IU/L (3-35); SGPT/ALT 13 U/L (12-78); SODIUM 139 mmol/L (136-145); TOTAL PROTEIN 6.4 gm/dL (6.4-8.2); TRIGLYCERIDES 77 mg/dl (<150); VLDL CHOLESTEROL 15 mg/dL (6-40)
[2017-10-28 07:22] LABS: ALKALINE PHOSPHATASE 79 U/L (45-117); HDL CHOLESTEROL 47 mg/dl (40-60); LDL CHOLESTEROL 83 mg/dL (9-159)
[2017-10-28 07:43] VITALS: BP 147/64
[2017-10-28 10:24] LABS: VITAMIN D, 25-HYDROXY 13.8 ng/mL (30-100)
[2017-10-28 12:00] VITALS: BP 148/75
[2017-10-28 16:00] VITALS: BP 141/61
[2017-10-28] MEDS ORDERED: VITAMIN D-32000 UNIT PO (17:28)
== END 2017-10-28 17:55 | disposition home or self-care (01) | DRG 641 ==
LOC: ED 19:38 → EDHOLD 21:19 → 5E 21:30
PROVIDERS: Emergency Medicine Emergency Medical Services; Hospitalist; Internal Medicine
DX: E86.0 Dehydration (principal); E44.0 Moderate protein-calorie malnutrition; Z68.1 Body mass index [BMI] 19.9 or less, adult; E87.1 Hypo-osmolality and hyponatremia; J44.9 Chronic obstructive pulmonary disease, unspecified; B18.2 Chronic viral hepatitis C; F17.200 Nicotine dependence, unspecified, uncomplicated; F41.9 Anxiety disorder, unspecified; F32.9 Major depressive disorder, single episode, unspecified; Z87.81 Personal history of (healed) traumatic fracture; Z82.49 Family history of ischemic heart disease and other diseases of the circulatory system; Z83.3 Family history of diabetes mellitus; Z83.6 Family history of other diseases of the respiratory system; R73.9 Hyperglycemia, unspecified; Z72.89 Other problems related to lifestyle; F14.90 Cocaine use, unspecified, uncomplicated; D72.810 Lymphocytopenia; R00.1 Bradycardia, unspecified; Z71.6 Tobacco abuse counseling; D64.9 Anemia, unspecified

== ENCOUNTER 2018-04-05 19:51 | Emergency (ER) | payer MEDICARE ==
[~2018-04-05] VITALS: Ht 177.8 cm; Wt 56.2 kg
[~2018-04-05 19:51] MED LIST changes: +VITAMIN D-32000 UNIT PO
[2018-04-05 19:57] VITALS: BP 149/70
[2018-04-05 20:59] LABS: ALBUMIN 3.6 gm/dl (3.1-4.5); ALKALINE PHOSPHATASE 67 U/L (45-117); BUN 13 mg/dl (7-24); CHLORIDE 100 mmol/L (98-107); CREATININE 0.78 mg/dL (0.70-1.30); POTASSIUM 3.9 mmol/L (3.5-5.1); SGOT/AST 16 IU/L (3-35); SGPT/ALT 17 U/L (12-78); SODIUM 137 mmol/L (136-145); TOTAL PROTEIN 7.1 gm/dL (6.4-8.2)
[2018-04-05 21:00] VITALS: BP 148/70
[2018-04-05 21:41] LABS: BASO % 0.7 % (0.0-1.0); EOS # 0.1 10*3/uL (0.0-0.4); EOS % 1.8 % (1.0-4.0); HEMOGLOBIN 12.9 g/dl (14.0-18.0); LYMPH # 1.9 10*3/uL (1.3-4.4); LYMPH % 30.4 % (27.0-41.0); MEAN CELL VOLUME 89.9 fl (80.0-94.0); MEAN CORPUSCULAR HGB 29.7 pg (27.0-31.0); MEAN CORPUSCULAR HGB CONC 33.1 g/dl (33.0-37.0); MEAN PLATELET VOLUME 9.2 fl (9.6-12.3); MONO # 0.6 10*3/uL (0.1-1.0); MONO % 10.4 % (3.0-9.0); NEUT # 3.4 10*3/uL (2.3-7.9); NEUT % 56.5 % (47.0-73.0); PLATELET COUNT AUTOMATED 173 10*3/uL (130-400); RED BLOOD COUNT 4.34 10*6/uL (4.50-5.90); RED CELL DISTRI WIDTH 14.7 % (0-14.5); WHITE BLOOD COUNT 6.1 10*3/uL (4.8-10.8)
[2018-04-05] MEDS ORDERED: Zofran4 MG SL (22:12)
== END 2018-04-05 22:25 | disposition home or self-care (01) ==
LOC: ED 19:51 → EDHOLD 22:11 → ED 22:25
PROVIDERS: Student in an Organized Health Care Education/Training Program
DX: R11.2 Nausea with vomiting, unspecified (principal); R19.7 Diarrhea, unspecified; F14.10 Cocaine abuse, uncomplicated; J44.9 Chronic obstructive pulmonary disease, unspecified; K21.9 Gastro-esophageal reflux disease without esophagitis; F12.10 Cannabis abuse, uncomplicated; F17.200 Nicotine dependence, unspecified, uncomplicated; Z90.49 Acquired absence of other specified parts of digestive tract; Z98.890 Other specified postprocedural states; Z79.899 Other long term (current) drug therapy

== ENCOUNTER → 2018-04-17 | Outpatient (CLI) | payer MEDICARE ==
[~2018-04-17] MED LIST changes: +PREDNISONE20 M1 PO; +Zofran4 MG SL
[2018-04-17 12:05] LABS: ALBUMIN 3.7 gm/dl (3.1-4.5); ALKALINE PHOSPHATASE 77 U/L (45-117); BILIRUBIN, DIRECT 0.2 mg/dL (0.0-0.2); BUN 17 mg/dl (7-24); CHLORIDE 101 mmol/L (98-107); POTASSIUM 4.5 mmol/L (3.5-5.1); SGOT/AST 17 IU/L (3-35); SGPT/ALT 17 U/L (12-78); SODIUM 134 mmol/L (136-145); TOTAL PROTEIN 7.2 gm/dL (6.4-8.2)
[2018-04-17 12:12] LABS: BASO % 0.6 % (0.0-1.0); EOS # 0.1 10*3/uL (0.0-0.4); EOS % 1.1 % (1.0-4.0); HEMATOCRIT 41.5 % (42.0-52.0); HEMOGLOBIN 13.4 g/dl (14.0-18.0); LYMPH # 1.8 10*3/uL (1.3-4.4); LYMPH % 26.5 % (27.0-41.0); MEAN CELL VOLUME 91.8 fl (80.0-94.0); MEAN CORPUSCULAR HGB 29.6 pg (27.0-31.0); MEAN CORPUSCULAR HGB CONC 32.3 g/dl (33.0-37.0); MONO # 0.6 10*3/uL (0.1-1.0); MONO % 8.4 % (3.0-9.0); NEUT # 4.2 10*3/uL (2.3-7.9); NEUT % 63.2 % (47.0-73.0); PLATELET COUNT AUTOMATED 203 10*3/uL (130-400); RED BLOOD COUNT 4.52 10*6/uL (4.50-5.90); RED CELL DISTRI WIDTH 14.5 % (0-14.5); WHITE BLOOD COUNT 6.6 10*3/uL (4.8-10.8)
[2018-04-22 21:02] LABS: HEPATITIS C QUANTITATION HCV Not Detected IU/mL (.)
== END | disposition home or self-care (01) ==
LOC: LAB 10:38
PROVIDERS: Nurse Practitioner Family
DX: B18.2 Chronic viral hepatitis C (principal); R19.7 Diarrhea, unspecified

== ENCOUNTER 2018-04-25 09:41 | Emergency (ER) | payer MEDICARE ==
[~2018-04-25] VITALS: Ht 170.1 cm; Wt 58.5 kg
[~2018-04-25 09:41] MED LIST changes: -PREDNISONE20 M1 PO
[2018-04-25] MEDS ORDERED: PREDNISONE20 M1 PO (10:05)
== END 2018-04-25 10:14 | disposition home or self-care (01) ==
LOC: ED 09:41
DX: L23.7 Allergic contact dermatitis due to plants, except food (principal); F17.200 Nicotine dependence, unspecified, uncomplicated; Z79.899 Other long term (current) drug therapy

== ENCOUNTER 2019-05-09 14:57 | Emergency (ER) | payer MEDICARE ==
[~2019-05-09] VITALS: Ht 175.2 cm; Wt 54.4 kg
[~2019-05-09 14:57] MED LIST changes: +PREDNISONE20 M1 PO
[2019-05-09] MEDS ORDERED: INDOMETHACIN50 MG PO (15:50)
== END 2019-05-09 16:24 | disposition home or self-care (01) ==
LOC: ED 14:57
DX: M79.641 Pain in right hand (principal); M79.89 Other specified soft tissue disorders; F17.200 Nicotine dependence, unspecified, uncomplicated; Z79.899 Other long term (current) drug therapy; X50.9XXA Other and unspecified overexertion or strenuous movements or postures, initial encounter; Y93.H2 Activity, gardening and landscaping; Y92.096 Garden or yard of other non-institutional residence as the place of occurrence of the external cause; Y99.8 Other external cause status

== ENCOUNTER 2019-07-03 11:07 | Emergency (ER) | payer MEDICARE ==
[~2019-07-03] VITALS: Ht 175.2 cm; Wt 53.1 kg
[~2019-07-03 11:07] MED LIST changes: +INDOMETHACIN50 MG PO
== END 2019-07-03 12:10 | disposition home or self-care (01) ==
LOC: ED 11:07
DX: T15.01XA Foreign body in cornea, right eye, initial encounter (principal); F17.200 Nicotine dependence, unspecified, uncomplicated; Z79.899 Other long term (current) drug therapy; W22.8XXA Striking against or struck by other objects, initial encounter; Y93.H2 Activity, gardening and landscaping; Y92.89 Other specified places as the place of occurrence of the external cause; Y99.8 Other external cause status

== ENCOUNTER → 2019-07-13 | Outpatient (CLI) | payer MEDICARE ==
[2019-07-13 15:30] LABS: CREATININE 0.93 mg/dL (0.70-1.30)
== END | disposition home or self-care (01) ==
LOC: CT 14:38
PROVIDERS: Physician Assistant
DX: N20.0 Calculus of kidney (principal); J43.8 Other emphysema; J40 Bronchitis, not specified as acute or chronic; H57.11 Ocular pain, right eye; K92.1 Melena; R63.4 Abnormal weight loss; F17.200 Nicotine dependence, unspecified, uncomplicated; Z90.49 Acquired absence of other specified parts of digestive tract

== ENCOUNTER → 2019-08-10 | Outpatient (CLI) | payer MEDICARE | END | disposition home or self-care (01) | LOC: RAD 11:54 | DX: M51.36 Other intervertebral disc degeneration, lumbar region (principal); M25.552 Pain in left hip; J43.8 Other emphysema; F17.200 Nicotine dependence, unspecified, uncomplicated ==

== ENCOUNTER 2019-12-05 17:50 | Emergency (ER) | payer OTHER ==
[~2019-12-05] VITALS: Ht 175.2 cm; Wt 59.0 kg
== END 2019-12-05 20:15 | disposition home or self-care (01) ==
LOC: ED 17:50
DX: M54.16 Radiculopathy, lumbar region (principal); M25.551 Pain in right hip; F17.200 Nicotine dependence, unspecified, uncomplicated; Z79.899 Other long term (current) drug therapy

== ENCOUNTER 2019-12-08 07:26 | Emergency (ER) | payer OTHER ==
[2019-12-08] MEDS ORDERED: CYCLOBENZAPRINE10 MG PO (08:50)
[2019-12-08] MEDS ORDERED: Motrin,Rufen800 MG PO (08:50)
[2019-12-08] MEDS ORDERED: MEDROL DOSEPAK4 MG PO (08:50)
== END 2019-12-08 08:57 | disposition home or self-care (01) ==
LOC: ED 07:26
DX: G89.29 Other chronic pain (principal); M54.5 Low back pain; J44.9 Chronic obstructive pulmonary disease, unspecified; F32.9 Major depressive disorder, single episode, unspecified; F41.9 Anxiety disorder, unspecified; K21.9 Gastro-esophageal reflux disease without esophagitis; Z79.899 Other long term (current) drug therapy

== ENCOUNTER → 2019-12-10 | Outpatient (CLI) | payer OTHER ==
[~2019-12-10] MED LIST changes: +CYCLOBENZAPRINE10 MG PO; +Motrin,Rufen800 MG PO
== END | disposition home or self-care (01) ==
LOC: RAD 15:25
DX: M25.551 Pain in right hip (principal); G89.29 Other chronic pain; M54.40 Lumbago with sciatica, unspecified side; F17.200 Nicotine dependence, unspecified, uncomplicated

== ENCOUNTER → 2020-01-14 | Outpatient (CLI) | payer OTHER ==
[2020-01-14 13:27] LABS: BASO # 0.1 10*3/uL (0.0-0.1); BASO % 0.9 % (0.0-1.0); EOS # 0.2 10*3/uL (0.0-0.4); EOS % 2.3 % (1.0-4.0); HEMATOCRIT 49.4 % (42.0-52.0); HEMOGLOBIN 15.8 g/dl (14.0-18.0); LYMPH # 2.3 10*3/uL (1.3-4.4); LYMPH % 32.1 % (27.0-41.0); MEAN CELL VOLUME 88.8 fl (80.0-94.0); MEAN CORPUSCULAR HGB 28.4 pg (27.0-31.0); MEAN PLATELET VOLUME 9.3 fl (9.6-12.3); MONO # 0.7 10*3/uL (0.1-1.0); MONO % 9.9 % (3.0-9.0); NEUT # 3.8 10*3/uL (2.3-7.9); NEUT % 54.5 % (47.0-73.0); PLATELET COUNT AUTOMATED 240 10*3/uL (130-400); RED BLOOD COUNT 5.56 10*6/uL (4.50-5.90)
[2020-01-14 13:43] LABS: ALKALINE PHOSPHATASE 80 U/L (45-117); BUN 14 mg/dl (7-24); CHLORIDE 108 mmol/L (98-107); CREATININE 0.97 mg/dL (0.70-1.30); SGOT/AST 13 IU/L (3-35); SGPT/ALT 19 U/L (12-78); SODIUM 139 mmol/L (136-145); TOTAL PROTEIN 7.7 gm/dL (6.4-8.2)
[2020-01-15 14:04] LABS: A/G RATIO 1.1 (0.7-1.7); ALBUMIN 3.6 g/dL (2.9-4.4); ALPHA-1-GLOBULIN 0.3 g/dL (0.0-0.4); ALPHA-2-GLOBULIN 0.9 g/dL (0.4-1.0); BETA GLOBULIN 1.1 g/dL (0.7-1.3); GAMMA GLOBULIN 1.2 g/dL (0.4-1.8); GLOBULIN, TOTAL 3.4 g/dL (2.2-3.9); M-SPIKE Not Observed g/dL (Not Observed)
== END | disposition home or self-care (01) ==
LOC: LAB 12:58
PROVIDERS: Orthopaedic Surgery
DX: R93.89 Abnormal findings on diagnostic imaging of other specified body structures (principal); E55.9 Vitamin D deficiency, unspecified; J45.909 Unspecified asthma, uncomplicated

== ENCOUNTER 2020-04-22 08:33 | Emergency (ER) | payer OTHER ==
[~2020-04-22] VITALS: Ht 170.1 cm; Wt 49.9 kg
[2020-04-22] MEDS ORDERED: PREDNISONE20 M1 PO (09:09)
[2020-04-22] MEDS ORDERED: BENADRYL ITCH28.3 G1 TD (09:09)
== END 2020-04-22 09:07 | disposition home or self-care (01) ==
LOC: ED 08:33
DX: L23.7 Allergic contact dermatitis due to plants, except food (principal); F17.200 Nicotine dependence, unspecified, uncomplicated; Z79.899 Other long term (current) drug therapy

== ENCOUNTER 2020-08-18 13:37 | Observation (INO) | payer OTHER ==
[~2020-08-18] VITALS: Ht 170.1 cm; Wt 65.8 kg
[~2020-08-18 13:37] MED LIST changes: +BENADRYL ITCH28.3 G1 TD
[2020-08-18 13:38] VITALS: BP 155/72
[2020-08-18 14:07] LABS: BASO % 0.5 % (0.0-1.0); EOS # 0.1 10*3/uL (0.0-0.4); HEMATOCRIT 47.1 % (42.0-52.0); LYMPH # 2.5 10*3/uL (1.3-4.4); LYMPH % 28.1 % (27.0-41.0); MEAN CELL VOLUME 89.5 fl (80.0-94.0); MEAN CORPUSCULAR HGB 28.9 pg (27.0-31.0); MEAN CORPUSCULAR HGB CONC 32.3 g/dl (33.0-37.0); MEAN PLATELET VOLUME 9.6 fl (9.6-12.3); MONO # 0.8 10*3/uL (0.1-1.0); MONO % 8.8 % (3.0-9.0); NEUT # 5.3 10*3/uL (2.3-7.9); NEUT % 60.6 % (47.0-73.0); PLATELET COUNT AUTOMATED 211 10*3/uL (130-400); RED BLOOD COUNT 5.26 10*6/uL (4.50-5.90); RED CELL DISTRI WIDTH 14.1 % (0-14.5); WHITE BLOOD COUNT 8.7 10*3/uL (4.8-10.8)
[2020-08-18 14:16] LABS: ACT PARTIAL THROMBO TIME 28.5 SECONDS (20.0-32.1)
[2020-08-18 14:22] LABS: ALBUMIN 3.6 gm/dl (3.1-4.5); ALKALINE PHOSPHATASE 86 U/L (45-117); BUN 16 mg/dl (7-24); CHLORIDE 109 mmol/L (98-107); CREATININE 0.85 mg/dL (0.70-1.30); LIPASE 165 U/L (73-393); POTASSIUM 3.8 mmol/L (3.5-5.1); SGOT/AST 69 IU/L (3-35); SGPT/ALT 40 U/L (12-78); SODIUM 141 mmol/L (136-145); TOTAL PROTEIN 7.5 gm/dL (6.4-8.2)
[2020-08-18 14:27] LABS: TROPONIN I < 0.015 ng/ml (<0.045)
--- NOTE | 2020-08-18 17:58 | NUR ---
PATIENT STATED HE DID NOT WANT TO BE HERE ANYMORE. THE PATIENT A[[EARED ANXIOUS AND WANTED HIS IV OUT. IT WAS EXPLAINED TO HIM THE HIS ADMISSION IS TAKING LONGER THAN USUAL D/T CAPACITY AND STAFFING. HE WAS UPSET AND STATED HE WAS LEAVING. HE SIGNED HIS AMA PAPERWORK WHILE HE WAS TOLD THE RISKS OF LEAVING. DR. LOCKWOOD INFORMED.
== END 2020-08-18 18:09 | disposition left against medical advice (07) ==
LOC: ED 13:37 → EDHOLD 15:43 → 4E 16:39
PROVIDERS: Emergency Medicine; ADMIT Internal Medicine; ATTEND Internal Medicine
DX: R07.89 Other chest pain (principal); E87.8 Other disorders of electrolyte and fluid balance, not elsewhere classified; E83.41 Hypermagnesemia; R74.01 Elevation of levels of liver transaminase levels; R79.89 Other specified abnormal findings of blood chemistry; J44.9 Chronic obstructive pulmonary disease, unspecified; K44.9 Diaphragmatic hernia without obstruction or gangrene; B18.2 Chronic viral hepatitis C; F41.8 Other specified anxiety disorders; K21.9 Gastro-esophageal reflux disease without esophagitis; M54.16 Radiculopathy, lumbar region; F17.210 Nicotine dependence, cigarettes, uncomplicated

== ENCOUNTER → 2021-03-20 | Outpatient (CLI) | payer OTHER ==
[2021-03-20 13:43] LABS: HEMATOCRIT 43.8 % (42.0-52.0); MEAN CELL VOLUME 88.7 fl (80.0-94.0); MEAN CORPUSCULAR HGB 28.7 pg (27.0-31.0); MEAN CORPUSCULAR HGB CONC 32.4 g/dl (33.0-37.0); MEAN PLATELET VOLUME 9.4 fl (9.6-12.3); RED BLOOD COUNT 4.94 10*6/uL (4.50-5.90); RED CELL DISTRI WIDTH 14.6 % (0-14.5); WHITE BLOOD COUNT 5.7 10*3/uL (4.8-10.8)
[2021-03-20 14:17] LABS: ALBUMIN 3.2 gm/dl (3.1-4.5); BUN 16 mg/dl (7-24); CHLORIDE 104 mmol/L (98-107); POTASSIUM 4.6 mmol/L (3.5-5.1); SGOT/AST 33 IU/L (3-35); SODIUM 137 mmol/L (136-145)
[2021-03-20 14:22] LABS: ALKALINE PHOSPHATASE 87 U/L (45-117); CREATININE 0.88 mg/dL (0.70-1.30); SGPT/ALT 31 U/L (12-78); TOTAL IRON BINDING CAPACITY 337 ug/dl (250-450); TOTAL PROTEIN 6.9 gm/dL (6.4-8.2)
[2021-03-20 15:12] LABS: FERRITIN 124.8 ng/mL (22.0-322.0)
[2021-03-21 20:06] LABS: HEPATITIS C QUANTITATION HCV Not Detected IU/mL (.)
== END | disposition home or self-care (01) ==
LOC: LAB 13:10
PROVIDERS: ATTEND Nurse Practitioner Family
DX: B18.2 Chronic viral hepatitis C (principal); R19.7 Diarrhea, unspecified

== ENCOUNTER → 2021-07-16 | Outpatient (CLI) | payer OTHER | END | disposition home or self-care (01) | LOC: COVID19 15:01 | PROVIDERS: ATTEND Internal Medicine | DX: Z11.52 Encounter for screening for COVID-19 (principal) ==

== ENCOUNTER → 2022-07-28 | Outpatient (CLI) | payer OTHER ==
[2022-07-31 18:06] LABS: HEPATITIS C QUANTITATION HCV Not Detected IU/mL (.)
== END | disposition home or self-care (01) ==
LOC: LAB 00:46 → CARD 09:30 → LAB 09:30
PROVIDERS: Nurse Practitioner Family; ATTEND Physician Assistant
DX: I34.89 Other nonrheumatic mitral valve disorders (principal); I49.3 Ventricular premature depolarization; B18.2 Chronic viral hepatitis C

== ENCOUNTER → 2022-10-29 | Outpatient (CLI) | payer OTHER | END | disposition home or self-care (01) | LOC: CT 00:55 | PROVIDERS: ATTEND Physician Assistant | DX: R51.9 Headache, unspecified (principal) ==

== ENCOUNTER → 2022-12-14 | Outpatient (CLI) | payer OTHER | END | disposition home or self-care (01) | LOC: CARD 11-23 01:12 | PROVIDERS: ATTEND Internal Medicine Cardiovascular Disease | DX: I49.3 Ventricular premature depolarization (principal); R94.31 Abnormal electrocardiogram [ECG] [EKG] ==

== ENCOUNTER 2023-01-28 12:33 | Inpatient (IN) | payer OTHER ==
[~2023-01-28] VITALS: Ht 175.2 cm; Wt 55.6 kg
[2023-01-28 12:42] VITALS: BP 118/63
[2023-01-28 13:18] LABS: BASO # 0.1 10*3/uL (0.0-0.1); BASO % 0.5 % (0.0-1.0); EOS # 0.1 10*3/uL (0.0-0.4); EOS % 0.5 % (1.0-4.0); HEMATOCRIT 44.9 % (42.0-52.0); LYMPH # 1.8 10*3/uL (1.3-4.4); LYMPH % 18.5 % (27.0-41.0); MEAN CELL VOLUME 89.8 fl (80.0-94.0); MEAN CORPUSCULAR HGB 28.8 pg (27.0-31.0); MEAN CORPUSCULAR HGB CONC 32.1 g/dl (33.0-37.0); MEAN PLATELET VOLUME 9.7 fl (9.6-12.3); MONO # 0.7 10*3/uL (0.1-1.0); MONO % 7.4 % (3.0-9.0); NEUT % 72.7 % (47.0-73.0); PLATELET COUNT AUTOMATED 233 10*3/uL (130-400); RED CELL DISTRI WIDTH 15.6 % (0-14.5); WHITE BLOOD COUNT 9.6 10*3/uL (4.8-10.8)
[2023-01-28 13:30] LABS: ACT PARTIAL THROMBO TIME 29.2 SECONDS (20.0-32.1); INTERNATIONAL NORM RATIO 0.9 (2.0-3.5)
[2023-01-28 13:43] LABS: ALKALINE PHOSPHATASE 98 U/L (46-116); BUN 10 mg/dl (9-23); CHLORIDE 99 mmol/L (98-107); LIPASE 20 U/L (12-53); POTASSIUM 4.4 mmol/L (3.4-5.1); TOTAL PROTEIN 7.2 gm/dL (6.0-8.0)
[2023-01-28 13:44] LABS: SGPT/ALT < 7 U/L (10-49)
[2023-01-28] MEDS ORDERED: Magnesium Oxid400 MG PO (14:57)
[2023-01-28] MEDS ORDERED: OMEPRAZOLE40 MG PO (14:58)
[2023-01-28] MEDS ORDERED: TEMAZEPAM15 M1 PO (15:03)
[2023-01-28] MEDS ORDERED: IRBESARTAN75 M1 PO (15:06)
[2023-01-28] MEDS ORDERED: ESGIC 325 MG-5050 MG PO (15:06)
[2023-01-28] MEDS ORDERED: ROFLUMILAST500 MCG PO (15:15)
[2023-01-28 15:37] VITALS: BP 168/80
[2023-01-29] VITALS: BP 125/53
[2023-01-29 06:14] LABS: BASO % 0.2 % (0.0-1.0); EOS % 0.1 % (1.0-4.0); HEMATOCRIT 43.2 % (42.0-52.0); LYMPH # 1.9 10*3/uL (1.3-4.4); LYMPH % 17.9 % (27.0-41.0); MEAN CELL VOLUME 89.3 fl (80.0-94.0); MEAN CORPUSCULAR HGB 29.5 pg (27.0-31.0); MEAN CORPUSCULAR HGB CONC 33.1 g/dl (33.0-37.0); MEAN PLATELET VOLUME 10.3 fl (9.6-12.3); MONO # 0.8 10*3/uL (0.1-1.0); MONO % 7.6 % (3.0-9.0); NEUT # 7.9 10*3/uL (2.3-7.9); NEUT % 73.6 % (47.0-73.0); PLATELET COUNT AUTOMATED 255 10*3/uL (130-400); RED BLOOD COUNT 4.84 10*6/uL (4.50-5.90); RED CELL DISTRI WIDTH 15.2 % (0-14.5); WHITE BLOOD COUNT 10.7 10*3/uL (4.8-10.8)
[2023-01-29 08:00] VITALS: BP 136/69
[2023-01-29 08:03] LABS: BUN 15 mg/dl (9-23); CHLORIDE 99 mmol/L (98-107); POTASSIUM 4.8 mmol/L (3.4-5.1)
[2023-01-29 12:00] VITALS: BP 152/76
[2023-01-29 16:00] VITALS: BP 158/86
[2023-01-29] MEDS ORDERED: PREDNISONE10 MG PO (17:13)
[2023-01-29] MEDS ORDERED: MUCUS RELIEF600 MG PO (17:13)
[2023-01-29] MEDS ORDERED: LEVOFLOXACIN500 MG PO (17:13)
== END 2023-01-29 17:50 | disposition home or self-care (01) | DRG 192 ==
LOC: ED 12:33 → EDHOLD 13:58 → 5E 14:25 → 4E 14:41
PROVIDERS: Emergency Medicine; Family Medicine; ADMIT Internal Medicine; ATTEND Internal Medicine
DX: J44.1 Chronic obstructive pulmonary disease with (acute) exacerbation (principal); R73.9 Hyperglycemia, unspecified; I49.8 Other specified cardiac arrhythmias; K21.9 Gastro-esophageal reflux disease without esophagitis; F17.210 Nicotine dependence, cigarettes, uncomplicated; I10 Essential (primary) hypertension; Z20.822 Contact with and (suspected) exposure to COVID-19; F41.8 Other specified anxiety disorders; B18.2 Chronic viral hepatitis C; F12.10 Cannabis abuse, uncomplicated; Z90.49 Acquired absence of other specified parts of digestive tract; Z82.49 Family history of ischemic heart disease and other diseases of the circulatory system; Z83.3 Family history of diabetes mellitus; Z79.51 Long term (current) use of inhaled steroids; Z79.899 Other long term (current) drug therapy

== ENCOUNTER → 2023-02-17 | Outpatient (CLI) | payer OTHER ==
[~2023-02-17] MED LIST changes: +ESGIC 325 MG-5050 MG PO; +IRBESARTAN75 M1 PO; +LEVOFLOXACIN500 MG PO; +MUCUS RELIEF600 MG PO; +Magnesium Oxid400 MG PO; +OMEPRAZOLE40 MG PO; +PREDNISONE10 MG PO; +ROFLUMILAST500 MCG PO; +TEMAZEPAM15 M1 PO
== END | disposition home or self-care (01) ==
LOC: CT 01:22
PROVIDERS: ATTEND Physician Assistant
DX: Z12.2 Encounter for screening for malignant neoplasm of respiratory organs (principal); J44.9 Chronic obstructive pulmonary disease, unspecified; F17.210 Nicotine dependence, cigarettes, uncomplicated

== ENCOUNTER → 2023-06-15 | Outpatient (CLI) | payer OTHER ==
[2023-06-17 17:06] LABS: HEPATITIS C QUANTITATION HCV Not Detected IU/mL (.)
== END | disposition home or self-care (01) ==
LOC: LAB 10:28
PROVIDERS: ATTEND Nurse Practitioner Family
DX: B18.2 Chronic viral hepatitis C (principal)

== ENCOUNTER 2023-07-03 10:28 | Inpatient (IN) | payer OTHER ==
[~2023-07-03] VITALS: Ht 172.7 cm; Wt 58.1 kg
[2023-07-03 03:50] VITALS: BP 166/76
[2023-07-03 10:36] VITALS: BP 146/89
[2023-07-03 11:28] LABS: BASO % 0.2 % (0.0-1.0); EOS % 0.2 % (1.0-4.0); HEMATOCRIT 43.4 % (42.0-52.0); LYMPH # 1.2 10*3/uL (1.3-4.4); LYMPH % 13.1 % (27.0-41.0); MEAN CELL VOLUME 87.7 fl (80.0-94.0); MEAN CORPUSCULAR HGB 30.7 pg (27.0-31.0); MEAN PLATELET VOLUME 10.2 fl (9.6-12.3); MONO # 0.6 10*3/uL (0.1-1.0); MONO % 6.5 % (3.0-9.0); NEUT # 7.3 10*3/uL (2.3-7.9); NEUT % 79.8 % (47.0-73.0); PLATELET COUNT AUTOMATED 199 10*3/uL (130-400); RED BLOOD COUNT 4.95 10*6/uL (4.50-5.90); RED CELL DISTRI WIDTH 15.2 % (0-14.5); WHITE BLOOD COUNT 9.1 10*3/uL (4.8-10.8)
[2023-07-03 11:42] LABS: ACT PARTIAL THROMBO TIME 27.7 SECONDS (20.0-32.1)
[2023-07-03 11:49] LABS: ALKALINE PHOSPHATASE 81 U/L (46-116); BUN 13 mg/dl (9-23); CHLORIDE 104 mmol/L (98-107); LIPASE 22 U/L (12-53); POTASSIUM 4.2 mmol/L (3.4-5.1); SGPT/ALT 13 U/L (10-49); TOTAL PROTEIN 6.9 gm/dL (6.0-8.0)
[2023-07-03] MEDS ORDERED: TOPIRAMATE25 M3 PO (14:55)
[2023-07-03 22:00] VITALS: BP 148/80
[2023-07-04 06:57] LABS: BASO % 0.1 % (0.0-1.0); HEMATOCRIT 44.8 % (42.0-52.0); LYMPH # 1.3 10*3/uL (1.3-4.4); LYMPH % 12.2 % (27.0-41.0); MEAN CELL VOLUME 88.9 fl (80.0-94.0); MEAN CORPUSCULAR HGB CONC 33.7 g/dl (33.0-37.0); MEAN PLATELET VOLUME 10.2 fl (9.6-12.3); MONO # 0.9 10*3/uL (0.1-1.0); MONO % 8.5 % (3.0-9.0); NEUT # 8.2 10*3/uL (2.3-7.9); NEUT % 78.7 % (47.0-73.0); PLATELET COUNT AUTOMATED 202 10*3/uL (130-400); RED BLOOD COUNT 5.04 10*6/uL (4.50-5.90); RED CELL DISTRI WIDTH 14.9 % (0-14.5); WHITE BLOOD COUNT 10.4 10*3/uL (4.8-10.8)
[2023-07-04 07:06] LABS: ACT PARTIAL THROMBO TIME 26.8 SECONDS (20.0-32.1)
[2023-07-04 07:31] LABS: ALKALINE PHOSPHATASE 74 U/L (46-116); BUN 17 mg/dl (9-23); CHLORIDE 102 mmol/L (98-107); CHOLESTEROL 205 mg/dL (<200); FREE T4 1.03 ng/dl (0.89-1.76); LDL CHOLESTEROL 79 mg/dL (9-159); POTASSIUM 4.2 mmol/L (3.4-5.1); SGPT/ALT 10 U/L (10-49); TOTAL PROTEIN 6.4 gm/dL (6.0-8.0); TRIGLYCERIDES 74 mg/dl (<150)
[2023-07-04 08:00] VITALS: BP 153/98
[2023-07-04 08:12] LABS: VITAMIN D, 25-HYDROXY 26.4 ng/mL (30-100)
[2023-07-04 12:00] VITALS: BP 117/66; BP 142/54
[2023-07-04 16:00] VITALS: BP 142/54; BP 147/63
[2023-07-04 20:00] VITALS: BP 141/93
[2023-07-05] VITALS: BP 166/83
[2023-07-05 07:39] LABS: BASO % 0.2 % (0.0-1.0); EOS % 0.2 % (1.0-4.0); LYMPH # 2.1 10*3/uL (1.3-4.4); LYMPH % 21.9 % (27.0-41.0); MEAN CELL VOLUME 89.2 fl (80.0-94.0); MEAN CORPUSCULAR HGB 29.8 pg (27.0-31.0); MEAN CORPUSCULAR HGB CONC 33.4 g/dl (33.0-37.0); MEAN PLATELET VOLUME 10.4 fl (9.6-12.3); MONO # 0.8 10*3/uL (0.1-1.0); MONO % 8.8 % (3.0-9.0); NEUT # 6.5 10*3/uL (2.3-7.9); NEUT % 68.6 % (47.0-73.0); PLATELET COUNT AUTOMATED 203 10*3/uL (130-400); RED BLOOD COUNT 4.93 10*6/uL (4.50-5.90); WHITE BLOOD COUNT 9.5 10*3/uL (4.8-10.8)
[2023-07-05 08:00] VITALS: BP 152/53
[2023-07-05 08:07] LABS: BUN 17 mg/dl (9-23); CHLORIDE 102 mmol/L (98-107); POTASSIUM 3.6 mmol/L (3.4-5.1)
[2023-07-05 12:00] VITALS: BP 131/54
[2023-07-05 16:00] VITALS: BP 139/72
[2023-07-05 20:00] VITALS: BP 149/43
[2023-07-06] VITALS: BP 152/79
[2023-07-06 06:07] LABS: BUN 19 mg/dl (9-23); CHLORIDE 103 mmol/L (98-107)
[2023-07-06 06:43] LABS: BASO % 0.2 % (0.0-1.0); EOS % 0.4 % (1.0-4.0); HEMATOCRIT 44.3 % (42.0-52.0); LYMPH # 2.5 10*3/uL (1.3-4.4); MEAN CELL VOLUME 91.9 fl (80.0-94.0); MEAN CORPUSCULAR HGB 29.9 pg (27.0-31.0); MEAN CORPUSCULAR HGB CONC 32.5 g/dl (33.0-37.0); MEAN PLATELET VOLUME 10.8 fl (9.6-12.3); MONO # 0.7 10*3/uL (0.1-1.0); MONO % 8.1 % (3.0-9.0); NEUT # 5.7 10*3/uL (2.3-7.9); NEUT % 62.9 % (47.0-73.0); PLATELET COUNT AUTOMATED 196 10*3/uL (130-400); RED BLOOD COUNT 4.82 10*6/uL (4.50-5.90); WHITE BLOOD COUNT 9.1 10*3/uL (4.8-10.8)
[2023-07-06 08:00] VITALS: BP 139/70
[2023-07-06] MEDS ORDERED: HYDROCODONE-AC1 EAC1 PO (09:49)
[2023-07-06] MEDS ORDERED: MUCINEX1200 M1 PO (09:49)
[2023-07-06] MEDS ORDERED: PROTONIX40 MG PO (09:49)
[2023-07-06] MEDS ORDERED: PREDNISONE10 MG PO (09:49)
[2023-07-06] MEDS ORDERED: VITAMIN D350 MCG PO (09:49)
[2023-07-06] MEDS ORDERED: LEVOFLOXACIN750 M2 PO (09:49)
== END 2023-07-06 10:36 | disposition home or self-care (01) | DRG 189 ==
LOC: ED 10:28 → EDHOLD 14:48 → 4E 14:48
PROVIDERS: Internal Medicine; Student in an Organized Health Care Education/Training Program; ADMIT Student in an Organized Health Care Education/Training Program; ATTEND Student in an Organized Health Care Education/Training Program
DX: J96.01 Acute respiratory failure with hypoxia (principal); J44.1 Chronic obstructive pulmonary disease with (acute) exacerbation; J40 Bronchitis, not specified as acute or chronic; K21.9 Gastro-esophageal reflux disease without esophagitis; I10 Essential (primary) hypertension; F32.A Depression, unspecified; N40.0 Benign prostatic hyperplasia without lower urinary tract symptoms; G89.29 Other chronic pain; M54.50 Low back pain, unspecified; F17.210 Nicotine dependence, cigarettes, uncomplicated; I49.8 Other specified cardiac arrhythmias; F41.8 Other specified anxiety disorders; Z90.49 Acquired absence of other specified parts of digestive tract; Z82.49 Family history of ischemic heart disease and other diseases of the circulatory system; Z86.19 Personal history of other infectious and parasitic diseases; Z71.6 Tobacco abuse counseling

== ENCOUNTER 2023-07-30 19:24 | Emergency (ER) | payer OTHER ==
[~2023-07-30] VITALS: Ht 175.2 cm; Wt 56.7 kg
[~2023-07-30 19:24] MED LIST changes: +HYDROCODONE-AC1 EAC1 PO; +LEVOFLOXACIN750 M2 PO; +MUCINEX1200 M1 PO; +PROTONIX40 MG PO; +TOPIRAMATE25 M3 PO; +VITAMIN D350 MCG PO
[2023-07-30 19:55] LABS: BASO % 0.3 % (0.0-1.0); EOS # 0.1 10*3/uL (0.0-0.4); EOS % 0.7 % (1.0-4.0); HEMATOCRIT 44.6 % (42.0-52.0); LYMPH # 0.6 10*3/uL (1.3-4.4); LYMPH % 9.5 % (27.0-41.0); MEAN CELL VOLUME 91.8 fl (80.0-94.0); MEAN CORPUSCULAR HGB 30.2 pg (27.0-31.0); MEAN PLATELET VOLUME 9.8 fl (9.6-12.3); MONO # 0.4 10*3/uL (0.1-1.0); MONO % 5.5 % (3.0-9.0); NEUT # 5.7 10*3/uL (2.3-7.9); NEUT % 83.9 % (47.0-73.0); PLATELET COUNT AUTOMATED 209 10*3/uL (130-400); RED BLOOD COUNT 4.86 10*6/uL (4.50-5.90); RED CELL DISTRI WIDTH 14.5 % (0-14.5); WHITE BLOOD COUNT 6.7 10*3/uL (4.8-10.8)
[2023-07-30 20:15] LABS: ALKALINE PHOSPHATASE 108 U/L (46-116); BUN 13 mg/dl (9-23); CHLORIDE 105 mmol/L (98-107); LIPASE 21 U/L (12-53); POTASSIUM 3.8 mmol/L (3.4-5.1); SGPT/ALT 20 U/L (5-49); TOTAL PROTEIN 7.3 gm/dL (6.0-8.0)
[2023-07-30 20:18] LABS: ACT PARTIAL THROMBO TIME 28.9 SECONDS (20.0-32.1); INTERNATIONAL NORM RATIO 0.9 (2.0-3.5)
[2023-07-30] MEDS ORDERED: TRAMADOL HCL50 MG PO (23:32)
== END 2023-07-31 00:04 | disposition home or self-care (01) ==
LOC: ED 19:24
PROVIDERS: Internal Medicine
DX: R07.89 Other chest pain (principal); R06.02 Shortness of breath; Z88.1 Allergy status to other antibiotic agents; Z90.49 Acquired absence of other specified parts of digestive tract; Z98.890 Other specified postprocedural states; Z95.5 Presence of coronary angioplasty implant and graft; F17.290 Nicotine dependence, other tobacco product, uncomplicated; F12.90 Cannabis use, unspecified, uncomplicated

== ENCOUNTER → 2024-03-09 | Outpatient (CLI) | payer OTHER ==
[~2024-03-09] MED LIST changes: +TRAMADOL HCL50 MG PO
== END | disposition home or self-care (01) ==
LOC: CT 13:00
PROVIDERS: ATTEND Physician Assistant
DX: J44.9 Chronic obstructive pulmonary disease, unspecified (principal); F17.200 Nicotine dependence, unspecified, uncomplicated

== ENCOUNTER → 2024-08-27 | Outpatient (CLI) | payer OTHER | END | disposition home or self-care (01) | LOC: MRI 02:30 | PROVIDERS: ATTEND Internal Medicine | DX: M51.16 Intervertebral disc disorders with radiculopathy, lumbar region (principal); M51.379 Other intervertebral disc degeneration, lumbosacral region without mention of lumbar back pain or lower extremity pain; M48.07 Spinal stenosis, lumbosacral region ==

== ENCOUNTER → 2024-09-11 | Outpatient (CLI) | payer OTHER ==
[~2024-09-11] MED LIST changes: +IOHEXOL 300 MG/ML 100 ML VIAL IV ONE
== END | disposition home or self-care (01) ==
LOC: CT 09-04 01:07
PROVIDERS: ATTEND Internal Medicine
DX: R22.1 Localized swelling, mass and lump, neck (principal)

== ENCOUNTER 2024-11-24 18:15 | Inpatient (IN) | payer OTHER ==
[~2024-11-24] VITALS: Ht 177.8 cm; Wt 60.0 kg
[~2024-11-24 18:15] MED LIST changes: -IOHEXOL 300 MG/ML 100 ML VIAL IV ONE
[2024-11-24] MEDS ORDERED: Albuterol Sulf/Ipratropium 3 ML VIAL NEB ONE (18:30)
[2024-11-24] MEDS ORDERED: methylPREDNISolone sod succ 125 MG VIAL IM ONE (18:30)
[2024-11-24 18:51] LABS: BASO % 0.1 % (0.0-1.0); HEMATOCRIT 51.2 % (42.0-52.0); MEAN CELL VOLUME 89.8 fl (80.0-94.0); MEAN CORPUSCULAR HGB 28.8 pg (27.0-31.0); MEAN PLATELET VOLUME 9.7 fl (9.6-12.3); MONO # 0.5 10*3/uL (0.1-1.0); NEUT # 8.6 10*3/uL (2.3-7.9); NEUT % 85.4 % (47.0-73.0); PLATELET COUNT AUTOMATED 192 10*3/uL (130-400); RED CELL DISTRI WIDTH 15.5 % (0-14.5); WHITE BLOOD COUNT 10.1 10*3/uL (4.8-10.8)
[2024-11-24 18:53] VITALS: BP 169/76
[2024-11-24 19:05] LABS: BUN 13 mg/dl (9-23); CHLORIDE 97 mmol/L (98-107); POTASSIUM 3.6 mmol/L (3.4-5.1)
[2024-11-24 21:26] VITALS: BP 164/88
[2024-11-24] MEDS ORDERED: LEVOFLOXACIN 750 MG TAB PO ONE (21:45)
[2024-11-24] MEDS ORDERED: ACETAMINOPHEN 325 MG TAB PO PRN (22:05)
[2024-11-24] MEDS ORDERED: Acetaminophen/Hydrocodone 5 MG/325 MG TABLET PO PRN (22:05)
[2024-11-24] MEDS ORDERED: TEMAZEPAM 15 MG CAP PO PRN (22:05)
[2024-11-24] MEDS ORDERED: BISACODYL 10 MG SUPP R PRN (22:05)
[2024-11-24] MEDS ORDERED: MORPHINE Sulfate 2 MG/ML SYR IV PRN (22:05)
[2024-11-24] MEDS ORDERED: Ondansetron Hydrochloride 4 MG TAB PO ONE (22:05)
[2024-11-24] MEDS ORDERED: ACETAMINOPHEN 650 MG SUPP R PRN (22:05)
[2024-11-24] MEDS ORDERED: Magnesium Hydroxide 30 ML UDC PO PRN (22:05)
[2024-11-24] MEDS ORDERED: BISACODYL 5 MG TAB PO PRN (22:05)
[2024-11-24] MEDS ORDERED: Pantoprazole Sodium 40 MG TAB PO PRN (22:15)
[2024-11-24] MEDS ORDERED: HYDROCODONE-AC1 EACH PO (23:25)
[2024-11-24] MEDS ORDERED: Ipratropium Brom3 ML INH (23:27)
[2024-11-24] MEDS ORDERED: METHOCARBAMOL 750 MG TAB PO PRN (23:30)
[2024-11-24] MEDS ORDERED: FOLIC ACID 1 MG TAB PO ONE (23:30)
[2024-11-24] MEDS ORDERED: Water, Sterile 10 ML VIAL IV PRN (23:30)
[2024-11-24] MEDS ORDERED: MAGNESIUM SULFATE 100 ML IV ONE (23:30)
[2024-11-24] MEDS ORDERED: Dicyclomine Hydrochloride 20 MG TAB PO PRN (23:30)
[2024-11-24] MEDS ORDERED: hydrOXYzine 50 MG CAP PO PRN (23:30)
[2024-11-24 23:32] VITALS: BP 152/78
[2024-11-25 00:23] LABS: ABG O2 SATURATION 95.5 % (94.0-98.0); ARTERIAL BLOOD GAS PH 7.465 (7.350-7.450); ARTERIAL BLOOD GAS PO2 70.9 mmHg (83.0-108.0)
[2024-11-25] MEDS ORDERED: Albuterol Sulf/Ipratropium 3 ML VIAL NEB SCH (00:25)
[2024-11-25 00:28] LABS: ABG BASE EXCESS 3.2 mmol/L (-2.0-3.0)
[2024-11-25 05:40] VITALS: BP 157/76
[2024-11-25] MEDS ORDERED: Thiamine 200 MG/2 ML VIAL IV SCH (06:00)
[2024-11-25 06:29] LABS: ALKALINE PHOSPHATASE 78 U/L (46-116); BUN 17 mg/dl (9-23); CHLORIDE 99 mmol/L (98-107); CHOLESTEROL 182 mg/dL (<200); FREE T4 1.03 ng/dl (0.89-1.76); LDL CHOLESTEROL 95 mg/dL (9-159); POTASSIUM 3.7 mmol/L (3.4-5.1); TOTAL PROTEIN 6.9 gm/dL (6.0-8.0); TRIGLYCERIDES 67 mg/dl (<150)
[2024-11-25 06:31] LABS: EOS % 0.5 % (1.0-4.0); HEMATOCRIT 50.5 % (42.0-52.0); MEAN CELL VOLUME 87.2 fl (80.0-94.0); MEAN CORPUSCULAR HGB 28.2 pg (27.0-31.0); MEAN CORPUSCULAR HGB CONC 32.3 g/dl (33.0-37.0); MEAN PLATELET VOLUME 10.3 fl (9.6-12.3); MONO # 0.2 10*3/uL (0.1-1.0); MONO % 2.6 % (3.0-9.0); NEUT # 6.7 10*3/uL (2.3-7.9); NEUT % 88.3 % (47.0-73.0); PLATELET COUNT AUTOMATED 185 10*3/uL (130-400); RED BLOOD COUNT 5.79 10*6/uL (4.50-5.90); RED CELL DISTRI WIDTH 15.7 % (0-14.5); WHITE BLOOD COUNT 7.6 10*3/uL (4.8-10.8)
[2024-11-25 06:42] LABS: SGPT/ALT < 7 U/L (5-49)
[2024-11-25 07:38] LABS: VITAMIN D, 25-HYDROXY 59.7 ng/mL (30-100)
[2024-11-25 08:00] VITALS: BP 154/66
[2024-11-25] MEDS ORDERED: cefTRIAXone Sodium 10 ML IV ONE (09:00)
[2024-11-25] MEDS ORDERED: GUAIFENESIN 600 MG TAB ER PO SCH (10:00)
[2024-11-25] MEDS ORDERED: Doxycycline Hyclate 100 MG CAP PO SCH (10:00)
[2024-11-25] MEDS ORDERED: Nicotine 21 MG PATCH T SCH (10:00)
[2024-11-25] MEDS ORDERED: methylPREDNISolone sod succ 40 MG VIAL IV SCH (10:00)
[2024-11-25] MEDS ORDERED: MULTIVITAMIN 1 TAB TAB PO SCH (10:00)
[2024-11-25] MEDS ORDERED: Enoxaparin Sodium 40 MG/0.4 ML SYR SC SCH (10:00)
[2024-11-25] MEDS ORDERED: FOLIC ACID 1 MG TAB PO ONE (11:55)
[2024-11-25 12:00] VITALS: BP 154/66
[2024-11-25] MEDS ORDERED: Ondansetron Hydrochloride 4 MG TAB PO PRN (13:05)
[2024-11-25] MEDS ORDERED: Acetaminophen/Hydrocodone HP 10/325 PO PRN (14:05)
[2024-11-25] MEDS ORDERED: TEMAZEPAM 15 MG CAP PO PRN (14:05)
[2024-11-25 15:01] VITALS: BP 136/66
[2024-11-25] MEDS ORDERED: LORazepam 1 MG TAB PO SCH ×3 (16:00)
[2024-11-25 20:00] VITALS: BP 153/58; BP 154/66
[2024-11-25] MEDS ORDERED: GABAPENTIN 800 MG TAB PO SCH (22:00)
[2024-11-26] VITALS: BP 135/57; BP 160/75
[2024-11-26] MEDS ORDERED: LORazepam 1 MG TAB PO PRN
[2024-11-26 04:00] VITALS: BP 154/66
[2024-11-26] MEDS ORDERED: Pantoprazole Sodium 40 MG TAB PO SCH (06:00)
[2024-11-26] MEDS ORDERED: LORazepam 1 MG TAB PO SCH (06:00)
[2024-11-26 08:00] VITALS: BP 154/88
[2024-11-26] MEDS ORDERED: cefTRIAXone Sodium 1 GM in SYRINGE INFUSION 10 ML IV SCH (10:00)
[2024-11-26] MEDS ORDERED: ROFLUMILAST 500 MCG TAB PO SCH (10:00)
[2024-11-26] MEDS ORDERED: PARoxetine Hydrochloride 20 MG TAB PO SCH (10:00)
[2024-11-26] MEDS ORDERED: Cholecalciferol 2,000 UNIT TABLET (50 MCG) PO SCH (10:00)
[2024-11-26 10:02] LABS: BASO % 0.1 % (0.0-1.0); HEMATOCRIT 50.3 % (42.0-52.0); MEAN CELL VOLUME 90.1 fl (80.0-94.0); MEAN CORPUSCULAR HGB 28.5 pg (27.0-31.0); MEAN CORPUSCULAR HGB CONC 31.6 g/dl (33.0-37.0); MEAN PLATELET VOLUME 9.7 fl (9.6-12.3); MONO # 0.9 10*3/uL (0.1-1.0); MONO % 8.2 % (3.0-9.0); NEUT # 8.5 10*3/uL (2.3-7.9); NEUT % 74.2 % (47.0-73.0); PLATELET COUNT AUTOMATED 194 10*3/uL (130-400); RED BLOOD COUNT 5.58 10*6/uL (4.50-5.90); RED CELL DISTRI WIDTH 15.9 % (0-14.5); WHITE BLOOD COUNT 11.4 10*3/uL (4.8-10.8)
[2024-11-26 10:27] LABS: ALKALINE PHOSPHATASE 74 U/L (46-116); BUN 18 mg/dl (9-23); CHLORIDE 99 mmol/L (98-107); POTASSIUM 3.6 mmol/L (3.4-5.1); SGPT/ALT 7 U/L (5-49)
[2024-11-26 12:01] VITALS: BP 150/90
[2024-11-26 16:00] VITALS: BP 140/76
[2024-11-26 20:00] VITALS: BP 154/66
[2024-11-26 21:43] LABS: BILIRUBIN Negative (Negative); BLOOD Negative (Negative); CLARITY Clear (Clear); COLOR Yellow (Yellow); GLUCOSE Negative (Negative); KETONE Negative (Negative); LEUKO ESTERASE Negative (Negative); NITRITE Negative (Negative); PH 6.5 (4.5-8.0); UROBILINOGEN 0.2 E.U./dl (0.0-1.0)
[2024-11-26 21:59] LABS: BACTERIA 1+; RBC 0-2 rbc/hpf (0-2); WBC 0-2 wbc/hpf (0-5)
[2024-11-27] VITALS: BP 101/58; BP 156/70; BP 168/75
[2024-11-27 06:16] LABS: BASO % 0.1 % (0.0-1.0); HEMATOCRIT 45.6 % (42.0-52.0); MEAN CELL VOLUME 89.8 fl (80.0-94.0); MEAN CORPUSCULAR HGB 28.7 pg (27.0-31.0); MEAN PLATELET VOLUME 10.2 fl (9.6-12.3); MONO # 0.5 10*3/uL (0.1-1.0); MONO % 4.5 % (3.0-9.0); NEUT # 9.5 10*3/uL (2.3-7.9); NEUT % 88.1 % (47.0-73.0); PLATELET COUNT AUTOMATED 188 10*3/uL (130-400); RED BLOOD COUNT 5.08 10*6/uL (4.50-5.90); RED CELL DISTRI WIDTH 15.8 % (0-14.5); WHITE BLOOD COUNT 10.8 10*3/uL (4.8-10.8)
[2024-11-27 07:10] LABS: ALKALINE PHOSPHATASE 67 U/L (46-116); BUN 22 mg/dl (9-23); CHLORIDE 101 mmol/L (98-107); POTASSIUM 4.2 mmol/L (3.4-5.1)
[2024-11-27 07:11] LABS: SGPT/ALT < 7 U/L (5-49)
[2024-11-27 08:00] VITALS: BP 168/79
[2024-11-27 12:00] VITALS: BP 155/80
[2024-11-27 15:19] VITALS: BP 159/76
[2024-11-27] MEDS ORDERED: OMNICEF300 MG PO (15:52)
[2024-11-27] MEDS ORDERED: MUCUS RELIEF E600 MG PO (15:52)
[2024-11-27] MEDS ORDERED: DOXYCYCLINE MO100 MG PO (15:52)
[2024-11-28] MEDS ORDERED: Cholecalciferol 2,000 UNIT TABLET (50 MCG) PO SCH (10:00)
== END 2024-11-27 16:26 | disposition home or self-care (01) | DRG 189 ==
LOC: ED 18:15 → EDHOLD 21:47 → 4E 21:47
PROVIDERS: Internal Medicine; Physician Assistant Medical; Student in an Organized Health Care Education/Training Program; ADMIT Internal Medicine; ATTEND Internal Medicine
DX: J96.01 Acute respiratory failure with hypoxia (principal); G93.41 Metabolic encephalopathy; F10.932 Alcohol use, unspecified with withdrawal with perceptual disturbance; J44.1 Chronic obstructive pulmonary disease with (acute) exacerbation; Z68.1 Body mass index [BMI] 19.9 or less, adult; E87.8 Other disorders of electrolyte and fluid balance, not elsewhere classified; K21.9 Gastro-esophageal reflux disease without esophagitis; M54.16 Radiculopathy, lumbar region; N40.0 Benign prostatic hyperplasia without lower urinary tract symptoms; F12.10 Cannabis abuse, uncomplicated; K44.9 Diaphragmatic hernia without obstruction or gangrene; R19.7 Diarrhea, unspecified; R73.9 Hyperglycemia, unspecified; R54 Age-related physical debility; I10 Essential (primary) hypertension; M54.50 Low back pain, unspecified; G89.29 Other chronic pain; F17.210 Nicotine dependence, cigarettes, uncomplicated; J43.9 Emphysema, unspecified; Z91.148 Patient's other noncompliance with medication regimen for other reason; Z71.6 Tobacco abuse counseling; Z90.49 Acquired absence of other specified parts of digestive tract; Z82.49 Family history of ischemic heart disease and other diseases of the circulatory system; Z83.3 Family history of diabetes mellitus; Z79.51 Long term (current) use of inhaled steroids; Z79.1 Long term (current) use of non-steroidal anti-inflammatories (NSAID); Z79.899 Other long term (current) drug therapy